=== PATIENT | male | born 1950 | race Caucasian/White ===

== ENCOUNTER 2018-07-08 10:00 | Observation (INO) | payer OTHER ==
[2018-07-08] VITALS (11 sets, daily range): BP systolic 119–189; BP diastolic 71–109
[~2018-07-08] VITALS: Ht 177.8 cm; Wt 97.1 kg
--- NOTE | 2018-07-08 10:00 | NUR ---
ARRIVAL TO ER 05 VIA [facility]. PT WITH C/O CP SINCE MIDNIGHT. SEE TRIAGE FOR HX. PT IS SITTING SEMI-FOWLERS ON CART, COLOR PINK, SKIN W/D. PT IS CALM AND COOPERATIVE. MONITORS PLACED.
[2018-07-08] MEDS ORDERED: NITROGLYCERIN 0.4 MG SL TABS BTL 25'S SL PRN ×2 (10:30→13:30)
--- NOTE | 2018-07-08 10:41 | Diagnostic Imaging Report ---
INDICATION: Chest pain and shortness of breath. Time of exam 10:05 a.m. COMPARISON: No prior studies are available for comparison. FINDINGS: The heart size is normal. The lungs appear to be clear. No infiltrates are seen. There is no effusion or pneumothorax. Pulmonary vascularity is normal. IMPRESSION: No acute cardiopulmonary process is detected. Dictated by: Dictated on workstation # [id number]
[2018-07-08 10:45] LABS: BASOPHILS % (AUTO) 1 % (0-10); EOSINOPHILS % (AUTO) 3 % (0-10); HEMATOCRIT 35 % (40-54); HEMOGLOBIN 10.7 G/DL (13.3-17.7); LYMPHOCYTES % (AUTO) 35 % (12-44); MEAN CORPUSCULAR HEMOGLOBIN 23 PG (25-34); MEAN CORPUSCULAR HGB CONC 30 G/DL (32-36); MEAN CORPUSCULAR VOLUME 74 FL (80-99); MEAN PLATELET VOLUME 9.5 FL (7.4-10.4); MONOCYTES % (AUTO) 13 % (0-12); PLATELET COUNT 341 10^3/uL (130-400); RED CELL DISTRIBUTION WIDTH 20.9 % (10.0-14.5); WHITE BLOOD COUNT 5.5 10^3/uL (4.3-11.0)
[2018-07-08 10:49] LABS: NEUTROPHILS % (AUTO) 48 % (42-75)
[2018-07-08] MEDS ORDERED: RT-ALBUTEROL/IPRATROPIUM 3 ML (DUONEB) VIAL ONE (10:49)
[2018-07-08 10:50] LABS: BASOPHILS # (AUTO) 0.1 10^3/uL (0.0-0.1); CHLORIDE 102 MMOL/L (98-107); EOSINOPHILS # (AUTO) 0.2 10^3/uL (0.0-0.3); LYMPHOCYTES # (AUTO) 1.9 X 10^3 (1.0-4.0); MONOCYTES # (AUTO) 0.7 X 10^3 (0.0-1.0); NEUTROPHILS # (AUTO) 2.6 X 10^3 (1.8-7.8); SODIUM 140 MMOL/L (135-145)
[2018-07-08 10:51] LABS: ALANINE AMINOTRANSFERASE 19 U/L (0-55); ALBUMIN 4.1 GM/DL (3.2-4.5); ALKALINE PHOSPHATASE 82 U/L (40-136); BILIRUBIN,TOTAL 0.7 MG/DL (0.1-1.0); BUN/CREATININE RATIO 13; CALCIUM 8.7 MG/DL (8.5-10.1); CARBON DIOXIDE 27 MMOL/L (21-32); CREATININE SERUM 0.96 MG/DL (0.60-1.30); GFR ESTIMATED > 60; GLUCOSE 117 MG/DL (70-105); MAGNESIUM 1.9 MG/DL (1.8-2.4); TOTAL PROTEIN 6.7 GM/DL (6.4-8.2)
--- NOTE | 2018-07-08 10:57 | ED Chest Pain ---
General Chief Complaint: Chest Pain Stated Complaint: CHEST PAIN Source: patient, EMS, old records Exam Limitations: no limitations History of Present Illness Date Seen by Provider: July 08, 2018 Time Seen by Provider: 10:39 Initial Comments The patient presents to ER by EMS from home with chief complaint that he's having some chest pain Center his chest radiating to his left arm. This started about midnight and is progressively gotten worse. At that time he took a dose of his nitroglycerin but he said the bottle very old and he did not get much benefit from it. EMS brought him and gave him 325 mg of aspirin to chew and swallow as well as another dose of nitroglycerin which she said gave him some modest relief from a 6 out of 10 down to a 5 out of 10. He says his pains worse with deep inspiration he's had an occasional cough and cold for the past month without fever or chills. He also has a history of COPD uses mometasone and has been using his albuterol couple times a day for the past 2-3 days with mild relief. He had quit smoking after he had stents placed within the last year and his heart however since living near his son he's picked up smoking again. 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 He takes aspirin and Plavix and states that he is not out of any of his medicines and takes them routinely. His last stent was August 2017 placed at the [facility]. Allergies and Home Medications Allergies Coded Allergies: NSAIDS (Non-Steroidal Anti-Inflamma (Verified Allergy, Severe, shortness of breath, rash, 07/08/18) codeine (Verified Allergy, Severe, swelling, shortness of breath, 07/08/18) Home Medications Aspirin 81 Mg Tablet.dr, 81 MG PO DAILY, (Reported) Atorvastatin Calcium 80 Mg Tablet, 80 MG PO HS, (Reported) Clopidogrel Bisulfate 75 Mg Tablet, 75 MG PO DAILY, (Reported) Cyclobenzaprine HCl 10 Mg Tablet, 10 MG PO TID PRN for SPASMS, (Reported) Metoprolol Tartrate 50 Mg Tablet, 50 MG PO BID, (Reported) Mometasone Furoate 220 Mcg Aer.pow.ba, 220 MCG IH DAILY, (Reported) Nitroglycerin 0.4 Mg Tab.subl, 0.4 MG SL UD PRN for CHEST PAIN, (Reported) Pantoprazole Sodium 40 Mg Tablet.dr, 40 MG PO BID, (Reported) Patient Home Medication List Home Medication List Reviewed: Yes Review of Systems Review of Systems Constitutional: No chills, No diaphoresis EENTM: No Blurred Vision, No Double Vision Respiratory: Denies Cough, Denies Shortness of Air Cardiovascular: See HPI, Chest Pain; Denies Edema, Denies Irregular Heart Rate Gastrointestinal: Denies Abdominal Pain, Denies Constipated, Denies Diarrhea, Denies Nausea, Denies Poor Fluid Intake, Denies Vomiting Genitourinary: Denies Burning, Denies Discharge Musculoskeletal: No back pain, No joint pain Skin: No pruritus, No rash Past Tjqxkpt-Tyrnkw-Dkpddu Hx Patient Social History Alcohol Use: Denies Use Recreational Drug Use: Yes Drug of Choice: MJ Smoking Status: Current Everyday Smoker Physical Exam Vital Signs Vital Signs - First Documented Capillary Refill : Less Than 3 Seconds Height, Weight, BMI Height: '" Weight: lbs. oz. kg; BMI Method: General Appearance: WD/WN, Anxious HEENT: PERRL/EOMI, Pharynx Normal, Moist Mucous Membranes Neck: Full Range of Motion, Normal Inspection, Supple Respiratory: Chest Non Tender, Lungs Clear, No Accessory Muscle Use, No Respiratory Distress, Decreased Breath Sounds Cardiovascular: Regular Rate, Rhythm, Normal Peripheral Pulses Gastrointestinal: Normal Bowel Sounds, Non Tender, Soft Extremity: Normal Capillary Refill, Pedal Edema (trace bilateral to the ankles) Neurologic/Psychiatric: Alert, Oriented x3, Normal Mood/Affect Skin: Normal Color, Warm/Dry Progress/Results/Core Measures Results/Orders Lab Results Laboratory Tests Test 07/08/18 10:10 Range/Units White Blood Count 5.5 4.3-11.0 10^3/uL Red Blood Count 4.75 4.35-5.85 10^6/uL Hemoglobin 10.7 L 13.3-17.7 G/DL Hematocrit 35 L 40-54 % Mean Corpuscular Volume 74 L 80-99 FL Mean Corpuscular Hemoglobin 23 L 25-34 PG Mean Corpuscular Hemoglobin Concent 30 L 32-36 G/DL Red Cell Distribution Width 20.9 H 10.0-14.5 % Platelet Count 341 130-400 10^3/uL Mean Platelet Volume 9.5 7.4-10.4 FL Neutrophils (%) (Auto) 48 42-75 % Lymphocytes (%) (Auto) 35 12-44 % Monocytes (%) (Auto) 13 H 0-12 % Eosinophils (%) (Auto) 3 0-10 % Basophils (%) (Auto) 1 0-10 % Neutrophils # (Auto) 2.6 1.8-7.8 X 10^3 Lymphocytes # (Auto) 1.9 1.0-4.0 X 10^3 Monocytes # (Auto) 0.7 0.0-1.0 X 10^3 Eosinophils # (Auto) 0.2 0.0-0.3 10^3/uL Basophils # (Auto) 0.1 0.0-0.1 10^3/uL Prothrombin Time 14.1 12.2-14.7 SEC INR Comment 1.1 0.8-1.4 Activated Partial Thromboplast Time 31 24-35 SEC D-Dimer 0.57 H 0.00-0.49 UG/ML Sodium Level 140 135-145 MMOL/L Potassium Level 4.0 3.6-5.0 MMOL/L Chloride Level 102 98-107 MMOL/L Carbon Dioxide Level 27 21-32 MMOL/L Anion Gap 11 5-14 MMOL/L Blood Urea Nitrogen 12 7-18 MG/DL Creatinine 0.96 0.60-1.30 MG/DL Estimat Glomerular Filtration Rate > 60 BUN/Creatinine Ratio 13 Glucose Level 117 H 70-105 MG/DL Calcium Level 8.7 8.5-10.1 MG/DL Corrected Calcium 8.6 8.5-10.1 MG/DL Magnesium Level 1.9 1.8-2.4 MG/DL Total Bilirubin 0.7 0.1-1.0 MG/DL Aspartate Amino Transf (AST/SGOT) 22 5-34 U/L Alanine Aminotransferase (ALT/SGPT) 19 0-55 U/L Alkaline Phosphatase 82 40-136 U/L Troponin T 11 <=15 NG/L Pro-B-Type Natriuretic Peptide 56.2 <75.0 PG/ML Total Protein 6.7 6.4-8.2 GM/DL Albumin 4.1 3.2-4.5 GM/DL My Orders Orders - THANG TUCKER Cbc With Automated Diff (07/08/18 10:18) Magnesium (07/08/18 10:18) Chest 1 View Ap/Pa Only (07/08/18 10:18) Ekg Tracing (07/08/18 10:18) Comprehensive Metabolic Panel (07/08/18 10:18) Protime With Inr (07/08/18 10:18) Partial Thromboplastin Time (07/08/18 10:18) O2 (07/08/18 10:18) Monitor-Rhythm Ecg Trace Only (07/08/18 10:18) Ed Iv/Invasive Line Start (07/08/18 10:18) Fibrin Degradation Products (07/08/18 10:18) Troponin T (07/08/18 10:18) Probnp Fs (07/08/18 10:18) Nitroglycerin 0.4 Mg Btl 25's (Nitrostat (07/08/18 10:30) Albuterol/Ipra Inhalation Soln (Duoneb I (07/08/18 10:49) Albuterol/Ipra Inhalation Soln (Duoneb I (07/08/18 11:00) Svn Small Volume Nebulizer (07/08/18 10:58) Morphine Injection (Morphine Injection (07/08/18 11:24) Medications Given in ED Current Medications Medications Dose Ordered Sig/Rox Route Start Time Stop Time Status Last Admin Dose Admin Albuterol/ Ipratropium 3 ml STK-MED ONCE .ROUTE 07/08/18 10:49 07/08/18 10:54 DC 07/08/18 10:58 3 ML Nitroglycerin 0.4 mg NEEDED PRN SL 07/08/18 10:30 07/08/18 10:27 0.4 MG Vital Signs/I&O 07/08/18 07/08/18 10:00 10:00 Temp 98.5 Pulse 63 Resp 22 B/P (MAP) 161/75 (103) Pulse Ox 99 O2 Delivery Room Air Room Air Progress Progress Note #1: Time: 10:54 Progress Note Minor relief from nitroglycerin. His blood pressure however went down from 175 systolic to 105 with a single dose. We'll try a DuoNeb And see if that gives him relief the symptoms. Could be pleuritic versus COPD versus other. Initial chest x-ray doesn't show any infiltrates. Pulmonary embolism seems unlikely as the patient has a heart rate in the low 60s and oxygen saturation is 100% on room air. He has had cold-like symptoms for the last month. ED ACS 19 points. Not low risk. This patient is not a candidate for early discharge and should receive a standard chest pain evaluation with delayed troponin testing. Wells criteria is 0.0 points. Low risk group: 1.3% chance of PE in an ED population. Another study assigned scores below 4 as PE Unlikely and had a 3% incidence of PE. Progress Note #2: Time: 11:49 Progress Note Patient states that he is feeling a little easier breathing after the breathing treatment however still rates the pain as a 5 out of 10. His blood pressure has improved so we'll give him some morphine and make movement transfer towards [facility]. D-dimer is not elevated age based. Initial ECG Impression Date: July 08, 2018 Initial ECG Impression Time: 10:06 Initial ECG Rate: 63 Initial ECG Rhythm: Normal Sinus Initial ECG Intervals: Normal Initial ECG Impression: Normal Initial ECG Comparisson: Unchanged Comment No ST elevation or depression. Diagnostic Imaging Diagonstic Imaging: Xray Plain Films/CT/US/NM/MRI: chest Comments NAME: MAXIMO CRUZ [facility] REC#: [id number] PT STATUS: REG ER : 1950 PHYSICIAN: THANG TUCKER MD ADMIT DATE: 07/08/18/ER FS Draft Date of Exam:07/08/18 CHEST 1 VIEW AP/PA ONLY INDICATION: Chest pain and shortness of breath. Time of exam 10:05 a.m. COMPARISON: No prior studies are available for comparison. FINDINGS: The heart size is normal. The lungs appear to be clear. No infiltrates are seen. There is no effusion or pneumothorax. Pulmonary vascularity is normal. IMPRESSION: No acute cardiopulmonary process is detected. Dictated on workstation # [id number] Dict: 07/08/18 1038 Trans: 07/08/18 1041 [id number] Interpreted by: JANETT GRAHAM MD Electronically signed by: Reviewed: Reviewed by Me Departure Communication (Admissions) Time/Spoke to Admitting Phy: 11:05 Dr. Spencer agrees to observe the patient on the medical telemetry floor. Cardiology consult. Time/Spoke to Consulting Phy: 11:00 Dr. Cuello agrees the patient should be observed since he's having ongoing chest pain with history of stent. Impression Primary Impression: Chest pain Qualified Codes: R07.9 - Chest pain, unspecified Disposition: ADMITTED INPATIENT Condition: Stable Admissions Decision to Admit Reason: Admit from ER (General) Decision to Admit/Date: July 08, 2018 Time/Decision to Admit Time: 11:00 THANG TUCKER July 08, 2018 10:57
[2018-07-08] MEDS ORDERED: RT-ALBUTEROL/IPRATROPIUM 3 ML (DUONEB) VIAL INH ONE (11:00)
--- NOTE | 2018-07-08 11:00 | NUR ---
PLANNED ADMISSION AND DR TUCKER CALLING DR RAMACHANDRAN AT [facility].
[2018-07-08] MEDS ORDERED: PANT40TA3 PO (11:07)
[2018-07-08] MEDS ORDERED: ATOR80TA76 PO (11:07)
[2018-07-08] MEDS ORDERED: CYCL10TA9 PO ×2 (11:07→14:21)
[2018-07-08] MEDS ORDERED: METO50TA15 PO (11:07)
[2018-07-08] MEDS ORDERED: NITR0.4T39 SL (11:07)
[2018-07-08] MEDS ORDERED: CLOP75TA28 PO (11:07)
[2018-07-08] MEDS ORDERED: MOME220A2 IH (11:07)
[2018-07-08] MEDS ORDERED: ASPI-983 PO (11:07)
--- NOTE | 2018-07-08 11:15 | NUR ---
AWAITING BED NUMBER FROM [facility].
[2018-07-08] MEDS ORDERED: morphine INJ 10 MG/ML 1ML (SYR OR VIAL) IVP STA (11:24)
[2018-07-08 11:31] LABS: INR 1.1 (0.8-1.4); PROTHROMBIN TIME PATIENT 14.1 SEC (12.2-14.7)
--- NOTE | 2018-07-08 11:36 | NUR ---
MORPHINE 4 MG SIVP GIVEN FOR CONTINUED C/O CP RATED "5"/10. PT REPORTS MORPHINE GOING TO HIS HEAD WITH A LIGHTHEADED FEELING. PT WAS TRYING TO USE URINAL AND NOW REQUIRING RN TO STAND PT TO BE ABLE TO VOID. RN REMAINS IN ROOM NEAR PT.
--- NOTE | 2018-07-08 11:50 | NUR ---
CALL TO [facility] RN: ALAYNA FOR REPORT AND RN NOT AVAILABLE. WILL AWAIT RETURN CALL.
--- NOTE | 2018-07-08 11:55 | NUR ---
FAXED REQUEST FOR TRANSFER
--- NOTE | 2018-07-08 12:00 | NUR ---
CALL TO [facility] TO DISPATCH EMS
--- NOTE | 2018-07-08 12:10 | NUR ---
EMS IS HERE, RN IS ON PHONE DOING REPORT AT THIS TIME.
--- NOTE | 2018-07-08 12:20 | NUR ---
PT DEPARTING ER AT THIS TIME REPORTING PAIN IS IMPROVING AFTER MORPHINE 4 MG IVP. PT HAS BEEN EATING ICE CHIPS WITHOUT DIFFICULTY. VSS. PT IS STABLE.
[2018-07-08] MEDS ORDERED: ONDANSETRON 4 MG/2 ML (SDV) Z0FRAN IV PRN (13:30)
[2018-07-08] MEDS ORDERED: ANTACID SUSP 30 ML UDC (MYLANTA) PO PRN (13:30)
[2018-07-08] MEDS ORDERED: ACETAMINOPHEN 500 MG TAB (TYLENOL) PO PRN (13:30)
--- NOTE | 2018-07-08 14:13 | NUR ---
MAXIMO CRUZ admitted to room 403-1, with an admitting diagnosis of chest pain, on 07/08/18 from ER via [facility], accompanied by EMS.MAXIMO CRUZ introduced to surroundings, call light, bed controls, phone, TV, temperature control, lights, meal times, smoking policy, visitor policy, side rail policy, bathrooms and showers. Patient Rights given to patient in the handbook. MAXIMO CRUZ verbalizes understanding that [facility] is not responsible for the loss or damage to any personal effects or valuables that are kept in the patients posession during their hospitalization. MAXIMO CRUZ verbalizes understanding of Interdisciplinary Patient Education. Patient and/or family were informed about the Rapid Response Team and its purpose.
[2018-07-08] MEDS ORDERED: RT-ALBUINH IH (14:21)
--- NOTE | 2018-07-08 14:21 | History & Physical-Hospitalist ---
History of Present Illness HPI/Chief Complaint Chief complaint: Chest pain HPI: This is a clinic Pt of the [facility] who has a past medical history of smoking who quit after prior stents were placed in the coronary vessels a few years ago and then restarted due to the stress level of many people living in his house with multiple dogs who presented to the [place] ER with chest pressure and considering his risk factors for unstable angina and cardiovascular compromise he was admitted and transferred to [facility] and Dr. Cuello is consulted. Pt will likely need to undergo some sort of cardiac catheterization procedure or stress test in order to risk stratify. At this current time Pt denies any pain. We did talk about smoking cessation. 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 He does not wear oxygen and does not wear a CPAP machine at home. Source: patient Exam Limitations: no limitations Date Seen 07/08/18 Time Seen by a Provider: 14:10 Attending Physician Dipika Spencer DO PCP No,Local Physician Referring Physician Date of Admission July 08, 2018 at 11:39 Home Medications & Allergies Home Medications Reviewed patient Home Medication Reconciliation performed by pharmacy medication reconciliations echocardiograph technician and/or nursing. Patients Allergies have been reviewed. Allergies Allergies Coded Allergies NSAIDS (Non-Steroidal Anti-Inflamma (Verified Allergy, Severe, shortness of breath, rash, 07/08/18) codeine (Verified Allergy, Severe, swelling, shortness of breath, 07/08/18) Past Qfvprcy-Anmlfs-Tiarhc Hx Past Med/Social Hx: Reviewed Nursing Past Med/Soc Hx, Reviewed and Corrections made Patient Social History Marrital Status: single Employed/Student: retired Alcohol Use: Denies Use Recreational Drug Use: Yes Drug of Choice: MJ Smoking Status: Current Everyday Smoker Type Used: Cigarettes 2nd Hand Smoke Exposure: Yes Recent Foreign Travel: No Contact w/other who traveled: No Recent Hopitalizations: No (hospitalized Feb 2018 @ [facility]) Recent Infectious Disease Expo: No Immunizations Up To Date Tetanus Booster (TDap): Unknown Date of Pneumonia Vaccine: Nov 10, 2017 Date of Influenza Vaccine: Nov 10, 2017 Seasonal Allergies Seasonal Allergies: No Past Medical History Surgeries: Coronary Stent Cardiac: Coronary Artery Disease, High Cholesterol, Hypertension Gastrointestinal: Gastroesophageal Reflux History of Blood Disorders: No Review of Systems Constitutional: see HPI EENTM: no symptoms reported Respiratory: no symptoms reported Cardiovascular: chest pain Gastrointestinal: no symptoms reported Genitourinary: no symptoms reported Musculoskeletal: no symptoms reported Skin: no symptoms reported Psychiatric/Neurological: No Symptoms Reported All Other Systems Reviewed Negative Unless Noted: Yes Physical Exam Physical Exam Vital Signs Vital Signs - First Documented 07/08/18 14:48 FiO2 21 Capillary Refill : Less Than 3 Seconds Height, Weight, BMI Height: 5'10.00" Weight: 214lbs. 0.0oz. [id number]; BMI Method:Stated General Appearance: No Apparent Distress, WD/WN, Chronically ill Eyes: Right Eye Normal Inspection, Right Eye PERRL HEENT: PERRL/EOMI, Normal ENT Inspection, Pharynx Normal, Moist Mucous Membranes Neck: Full Range of Motion, Normal Inspection, Non Tender Respiratory: Chest Non Tender, Lungs Clear, No Accessory Muscle Use, No Respiratory Distress, Decreased Breath Sounds Cardiovascular: Regular Rate, Rhythm, No Edema, No Gallop, No JVD, No Murmur, Normal Peripheral Pulses Gastrointestinal: Normal Bowel Sounds, No Organomegaly, No Pulsatile Mass, Non Tender, Soft Back: Normal Inspection, No CVA Tenderness, No Vertebral Tenderness Extremity: Normal Capillary Refill, Normal Inspection, Normal Range of Motion, Non Tender, No Calf Tenderness, No Pedal Edema Neurologic/Psychiatric: Alert, Oriented x3, No Motor/Sensory Deficits, Normal Mood/Affect Skin: Normal Color, Warm/Dry Lymphatic: No Adenopathy Results Results/Procedures Labs Laboratory Tests 07/08/18 10:10 Patient resulted labs reviewed. Assessment/Plan Admission Diagnosis Assessment: Chest pain r/o ACS CAD Coronary stents in past Smoker Obesity Plan: Dr Cuello consultation is appreciated Monitor chest pain EST Monitor labs Smoking cessation Admission Status: Observation Diagnosis/Problems Diagnosis/Problems (1) Chest pain Status: Acute Qualifiers: Chest pain type: unspecified Qualified Codes: R07.9 - Chest pain, unspecified (2) CAD (coronary artery disease) Status: Chronic Qualifiers: Coronary Disease-Associated Artery/Lesion type: [place] artery [place] vs. transplanted heart: [place] heart Associated angina: without angina Qualified Codes: I25.10 - Atherosclerotic heart disease of [place] coronary artery without angina pectoris (3) Presence of stent in coronary artery Status: Chronic (4) Smoker Status: Chronic (5) Obesity (BMI 30.0-34.9) Status: Chronic SPENCER,DIPIKA DO July 08, 2018 14:21
[2018-07-08] MEDS ORDERED: MULT1TAB69 PO (14:22)
[2018-07-08] MEDS ORDERED: ASCO-262 PO (14:22)
[2018-07-08] MEDS ORDERED: ACET-2267 PO (14:22)
--- NOTE | 2018-07-08 14:23 | NUR ---
[facility] [place], HE IS SEEN AT THE CLINIC IN [place]. HE HAS A DETAILED LIST OF HIS MEDICATIONS HE IS TAKING AND I UPDATED THE MED REC WITH THAT LIST.
[2018-07-08] MEDS ORDERED: RT-ALBUTEROL/IPRATROPIUM 3 ML (DUONEB) VIAL INH PRN (15:00)
--- NOTE | 2018-07-08 15:46 | Consultation-Cardiology ---
HPI-Cardiology Cardiology Consultation Date of Consultation 07/08/18 Date of Admission Time Seen by Provider: 15:43 Indication: chest pain HPI 68 years old gentleman with history of coronary artery disease multiple interventions in the past, reporting having 3 stents in the past. Start to have chest pain around midnight. Came into the emergency room, responded to morphine and nitroglycerin, currently chest pain-free, was having some shortness of breath and pedal edema which has been worsening recently. No syncope or near syncopal episodes. No claudications Home Medications & Allergies Allergies: Coded Allergies: NSAIDS (Non-Steroidal Anti-Inflamma (Verified Allergy, Severe, shortness of breath, rash, 07/08/18) codeine (Verified Allergy, Severe, swelling, shortness of breath, 07/08/18) Home Medication List Reviewed: Yes VHZ-Jvefcg-Xxydcn Hx Patient Social History Marital Status: Employed/Student: employed, retired Alcohol Use: Denies Use Recreational Drug Use: Yes Drug of Choice: MJ Smoking Status: Current Everyday Smoker Type Used: Cigarettes 2nd Hand Smoke Exposure: Yes Recent Foreign Travel: No Recent Infectious Disease Expo: No Recent Hopitalizations: No (hospitalized Feb 2018 @ [facility]) Immunizations Up To Date Tetanus Booster (TDap): Unknown Date of Pneumonia Vaccine: Nov 10, 2017 Date of Influenza Vaccine: Nov 10, 2017 Past Medical History discussed below Family Medical History Family Medical Hx noncontributory to his current condition Review of Systems-General Review of Systems Constitutional: see HPI; No chills, No diaphoresis EENTM: see HPI, no symptoms reported Respiratory: see HPI, cough, dyspnea on exertion; No hemoptysis; orthopnea; No phlegm; short of breath; No stridor, No wheezing, No other Cardiovascular: see HPI, chest pain, edema; No Hx of Intervention, No palpitations, No syncope, No vascular heart diseas, No other Gastrointestinal: no symptoms reported, see HPI Genitourinary: no symptoms reported, see HPI Musculoskeletal: no symptoms reported; No back pain, No joint pain Skin: no symptoms reported; No pruritus, No rash Psychiatric/Neurological: No Symptoms Reported, See HPI Reviewed Test Results Reviewed Test Results Lab Laboratory Tests Test 07/08/18 10:10 07/08/18 14:54 Range/Units White Blood Count 5.5 4.3-11.0 10^3/uL Red Blood Count 4.75 4.35-5.85 10^6/uL Hemoglobin 10.7 L 13.3-17.7 G/DL Hematocrit 35 L 40-54 % Mean Corpuscular Volume 74 L 80-99 FL Mean Corpuscular Hemoglobin 23 L 25-34 PG Mean Corpuscular Hemoglobin Concent 30 L 32-36 G/DL Red Cell Distribution Width 20.9 H 10.0-14.5 % Platelet Count 341 130-400 10^3/uL Mean Platelet Volume 9.5 7.4-10.4 FL Neutrophils (%) (Auto) 48 42-75 % Lymphocytes (%) (Auto) 35 12-44 % Monocytes (%) (Auto) 13 H 0-12 % Eosinophils (%) (Auto) 3 0-10 % Basophils (%) (Auto) 1 0-10 % Neutrophils # (Auto) 2.6 1.8-7.8 X 10^3 Lymphocytes # (Auto) 1.9 1.0-4.0 X 10^3 Monocytes # (Auto) 0.7 0.0-1.0 X 10^3 Eosinophils # (Auto) 0.2 0.0-0.3 10^3/uL Basophils # (Auto) 0.1 0.0-0.1 10^3/uL Prothrombin Time 14.1 12.2-14.7 SEC INR Comment 1.1 0.8-1.4 Activated Partial Thromboplast Time 31 24-35 SEC D-Dimer 0.57 H 0.00-0.49 UG/ML Sodium Level 140 135-145 MMOL/L Potassium Level 4.0 3.6-5.0 MMOL/L Chloride Level 102 98-107 MMOL/L Carbon Dioxide Level 27 21-32 MMOL/L Anion Gap 11 5-14 MMOL/L Blood Urea Nitrogen 12 7-18 MG/DL Creatinine 0.96 0.60-1.30 MG/DL Estimat Glomerular Filtration Rate > 60 BUN/Creatinine Ratio 13 Glucose Level 117 H 70-105 MG/DL Calcium Level 8.7 8.5-10.1 MG/DL Corrected Calcium 8.6 8.5-10.1 MG/DL Magnesium Level 1.9 1.8-2.4 MG/DL Total Bilirubin 0.7 0.1-1.0 MG/DL Aspartate Amino Transf (AST/SGOT) 22 5-34 U/L Alanine Aminotransferase (ALT/SGPT) 19 0-55 U/L Alkaline Phosphatase 82 40-136 U/L Troponin T 11 <=15 NG/L Pro-B-Type Natriuretic Peptide 56.2 <75.0 PG/ML Total Protein 6.7 6.4-8.2 GM/DL Albumin 4.1 3.2-4.5 GM/DL Glucometer 121 H 70-110 MG/DL Physical Exam Physical Exam Vital Signs Vital Signs - First Documented 07/08/18 14:48 FiO2 21 Capillary Refill : Less Than 3 Seconds Height, Weight, BMI Height: 5'10.00" Weight: 214lbs. 0.0oz. [id number]; 30.7 BMI Method:Stated General Appearance: WD/WN, Anxious Eyes: Bilateral Eye Normal Inspection, Bilateral Eye PERRL, Bilateral Eye EOMI HEENT: PERRL/EOMI, Pharynx Normal, Moist Mucous Membranes Neck: Full Range of Motion, Normal Inspection, Supple Respiratory: Chest Non Tender, Lungs Clear, No Accessory Muscle Use, No Respiratory Distress, Decreased Breath Sounds Cardiovascular: Regular Rate, Rhythm, Normal Peripheral Pulses, Systolic Murmur, Gallop/S3 Gastrointestinal: Normal Bowel Sounds, Non Tender, Soft Back: Normal Inspection, No CVA Tenderness, No Vertebral Tenderness Extremity: Normal Capillary Refill, Pedal Edema (trace bilateral to the ankles) Neurologic/Psychiatric: Alert, Oriented x3, Normal Mood/Affect Skin: Normal Color, Warm/Dry Lymphatic: No Adenopathy A/P-Cardiology Admission Diagnosis Unstable angina Coronary artery disease next and congestive heart failure Hypertension Hyperlipidemia Assessment/Plan Chest pain resembling angina, unstable angina. Cardiac enzymes were negative, currently chest pain-free, planning to proceed with stress test possible cardiac catheterization if needed. Continue to monitor cardiac enzymes, continue aspirin, restart home medication Peripheral edema, congestive heart failure, acute on chronic left ventricular systolic dysfunction, evaluate echocardiogram Hypertension, restart home medication monitor blood pressure next Hyperlipidemia, restart home medication monitor lipids Tobaccoism, still an active smoker, educated on smoking cessation Obesity, BMI 30, discussed weight loss BRANDYN WARREN MD July 08, 2018 15:46
[2018-07-08] MEDS ORDERED: REGADENOSON 0.4 MG/5 ML SYR (LEXISCAN) IV ONE (16:00)
[2018-07-08] MEDS: RT-ALBUTEROL/IPRATROPIUM 3 ML (DUONEB) VIAL INH SCH (18:51)
[2018-07-08] MEDS ORDERED: NICOTINE 21 MG (NICODERM) PATCH TD PRN (20:00)
[2018-07-08] MEDS ORDERED: RT-ALBUTEROL SULF 2.5 MG/3 ML PRE-MIX VIAL IH PRN (20:00)
[2018-07-08] MEDS ORDERED: ALPRAZolam 0.25 MG (XANAX) TAB PO PRN (20:00)
[2018-07-08] MEDS ORDERED: CYCLOBENZAPRINE 10 MG (FLEXERIL) TAB PO PRN (20:00)
[2018-07-08] MEDS ORDERED: HYDROcodone/APAP 5 MG/325 MG (LORTAB) TAB PO PRN (20:00)
[2018-07-08] MEDS ORDERED: diphenhydrAMINE 25 MG TAB (BENADRYL) PO PRN (20:00)
[2018-07-08] MEDS ORDERED: DOCUSATE SODIUM 100 MG (COLACE) CAP PO PRN (20:00)
[2018-07-08] MEDS ORDERED: MELATONIN 3 MG TABLET PO PRN (20:00)
[2018-07-08] MEDS: PANTOPRAZOLE 40 MG (PROTONIX) TAB PO SCH (20:21)
[2018-07-08] MEDS: CYCLOBENZAPRINE 10 MG (FLEXERIL) TAB PO SCH (20:21)
[2018-07-08] MEDS: SENNA W/DOCUSATE (SENOKOT S) TABLET PO SCH (20:21)
[2018-07-08] MEDS: meTOprolol TARTRATE 50 MG (LOPRESSOR) TAB PO SCH (20:22)
[2018-07-08] MEDS: ATORVASTATIN 80 MG (LIPITOR) TABLET PO SCH (20:22)
[2018-07-08] MEDS ORDERED: MOMETASONE FUROATE IH SCH (21:00)
[2018-07-09] VITALS (8 sets, daily range): BP systolic 129–163; BP diastolic 70–87
[2018-07-09 05:46] LABS: BASOPHILS # (AUTO) 0.1 10^3/uL (0.0-0.1); BASOPHILS % (AUTO) 1 % (0-10); EOSINOPHILS # (AUTO) 0.3 10^3/uL (0.0-0.3); EOSINOPHILS % (AUTO) 4 % (0-10); HEMATOCRIT 34 % (40-54); HEMOGLOBIN 10.8 G/DL (13.3-17.7); LYMPHOCYTES # (AUTO) 1.9 X 10^3 (1.0-4.0); LYMPHOCYTES % (AUTO) 29 % (12-44); MEAN CORPUSCULAR HEMOGLOBIN 23 PG (25-34); MEAN CORPUSCULAR HGB CONC 32 G/DL (32-36); MEAN CORPUSCULAR VOLUME 72 FL (80-99); MEAN PLATELET VOLUME 10.2 FL (7.4-10.4); MONOCYTES # (AUTO) 0.8 X 10^3 (0.0-1.0); MONOCYTES % (AUTO) 13 % (0-12); NEUTROPHILS # (AUTO) 3.5 X 10^3 (1.8-7.8); NEUTROPHILS % (AUTO) 53 % (42-75); PLATELET COUNT 347 10^3/uL (130-400); RED CELL DISTRIBUTION WIDTH 21.1 % (10.0-14.5); WHITE BLOOD COUNT 6.5 10^3/uL (4.3-11.0)
[2018-07-09 06:00] LABS: ANISOCYTOSIS SLIGHT; BAND NEUTROPHILS 0 %; BASOPHILS % (MANUAL) 0 %; ELLIPT/OVALOCYTES SLIGHT; EOSINOPHILS % (MANUAL) 6 %; HYPOCHROMASIA MODERATE; LYMPHOCYTES % (MANUAL) 21 %; MONOCYTES % (MANUAL) 8 %; NEUTROPHILS % (MANUAL) 63 %; REACTIVE LYMPHOCYTES 2 %; TARGET CELLS SLIGHT
[2018-07-09 06:07] LABS: ALANINE AMINOTRANSFERASE 18 U/L (0-55); ALBUMIN 3.8 GM/DL (3.2-4.5); ALKALINE PHOSPHATASE 87 U/L (40-136); BILIRUBIN,TOTAL 0.4 MG/DL (0.1-1.0); BUN/CREATININE RATIO 16; CALCIUM 8.8 MG/DL (8.5-10.1); CARBON DIOXIDE 23 MMOL/L (21-32); CHLORIDE 108 MMOL/L (98-107); CHOLESTEROL 96 MG/DL (< 200); CREATININE SERUM 0.86 MG/DL (0.60-1.30); GFR ESTIMATED > 60; GLUCOSE 106 MG/DL (70-105); HDL CHOLESTEROL 37 MG/DL (40-60); POTASSIUM 3.9 MMOL/L (3.6-5.0); SODIUM 139 MMOL/L (135-145); TOTAL PROTEIN 6.4 GM/DL (6.4-8.2); TRIGLYCERIDES 45 MG/DL (<150); VLDL CHOLESTEROL 9 MG/DL (5-40)
[2018-07-09] MEDS ORDERED: CATHETER FLUSH 10 ML SYR IV PRN (07:15)
[2018-07-09] MEDS ORDERED: REGADENOSON 0.4 MG/5 ML SYR (LEXISCAN) IV ONE (07:41)
--- NOTE | 2018-07-09 08:16 | Cardiology Progress Note ---
Subjective Date Seen by Provider: July 09, 2018 Time Seen by Provider: 08:15 Subjective/Events-last exam patient is laying down in bed, feeling better, still having some dyspnea. Had a stress test earlier Review of Systems General: No Chills, No Night Sweats, No Fatigue, No Malaise, No Appetite, No Other HEENT: No Head Aches, No Visual Changes, No Eye Pain, No Ear Pain, No Dysphasia, No Sinus Congestion, No Post Nasal Drip, No Sore Throat, No Other Pulmonary: Dyspnea; No Cough, No Pleuritic Chest Pain, No Other Cardiovascular: Chest Pain; No: Palpitations, Orthopnea, Paroxysmal Noc. Dyspnea, Edema, Lt Headedness, Other Objective-Cardiology Exam Last Set of Vital Signs Vital Signs 07/08/18 07/09/18 07/09/18 07/09/18 14:48 03:45 07:52 07:53 Temp 97.6 Pulse 98 Resp 18 B/P (MAP) 163/87 (112) Pulse Ox 95 O2 Delivery Room Air FiO2 21 Capillary Refill : Less Than 3 Seconds I&O Intake and Output 07/09/18 00:00 Intake Total 680 ml Balance 680 ml Intake Oral 680 ml # Voids 3 Daily Weight Change No General: Alert, Oriented X3, Cooperative HEENT: Atraumatic, PERRLA Neck: Supple, No JVD, No Thyromegaly Lungs: Clear to Auscultation, Normal Air Movement Heart: Regular Rate, Normal S1, Normal S2, No Murmurs Abdomen: Normal Bowel Sounds, Soft, No Tenderness, No Hepatosplenomegaly, No Masses Extremities: No Clubbing, No Cyanosis, No Edema, Normal Pulses, No Tenderness/Swelling Skin: No Rashes, No Breakdown, No Significant Lesion Neuro: Normal Gait, Normal Speech, Strength at 5/5 X4 Ext, Normal Tone, Sensation Intact Psych/Mental Status: Mental Status NL, Mood NL Results Lab Laboratory Tests 07/08/18 10:10 07/09/18 05:11 A/P-Cardiology Admission Diagnosis Unstable angina Coronary artery disease next and congestive heart failure Hypertension Hyperlipidemia Assessment/Plan Chest pain resembling angina, unstable angina. Cardiac enzymes were negative, currently chest pain-free, stress test was done this morning, nuclear images are being processed. We'll continue to follow with you Peripheral edema, congestive heart failure, acute on chronic left ventricular systolic dysfunction, normal left ventricular systolic function per echocardiogram. Hypertension, monitor blood pressure Hyperlipidemia, restart home medication monitor lipids Tobaccoism, still an active smoker, educated on smoking cessation Obesity, BMI 30, discussed weight loss Clinical Quality Measures DVT/VTE Risk/Contraindication: Risk Factor Score Per Nursin RFS Level Per Nursing on Admit: 4+=Very High BRANDYN WARREN MD July 09, 2018 08:16
[2018-07-09] MEDS: SENNA W/DOCUSATE (SENOKOT S) TABLET PO SCH ×2 (09:40→21:26)
[2018-07-09] MEDS: ASPIRIN E.C. 81 MG (ECOTRIN) TAB PO SCH (09:41)
[2018-07-09] MEDS: CLOPIDOGREL 75 MG (PLAVIX) TABLET PO SCH (09:41)
[2018-07-09] MEDS: meTOprolol TARTRATE 50 MG (LOPRESSOR) TAB PO SCH ×2 (09:42→21:25)
[2018-07-09] MEDS: PANTOPRAZOLE 40 MG (PROTONIX) TAB PO SCH ×2 (09:42→21:25)
[2018-07-09] MEDS: NICOTINE PATCH REMOVAL TP SCH (09:42)
[2018-07-09] MEDS: lisINopril 5 MG (PRINIVIL) TABLET PO SCH (09:42)
[2018-07-09] MEDS ORDERED: methylPREDNISolone 40 MG/ML (Solu-MEDROL) VIAL IV ONE (09:45)
--- NOTE | 2018-07-09 09:46 | Progress Note-Hospitalist ---
Subjective HPI/CC On Admission Date Seen by Provider: July 09, 2018 Time Seen by Provider: 09:15 Chief complaint: Chest pain HPI: This is a clinic Pt of the [facility] clinic who has a past medical history of smoking who quit after prior stents were placed in the coronary vessels a few years ago and then restarted due to the stress level of many people living in his house with multiple dogs who presented to the [place] [facility] with chest pressure and considering his risk factors for unstable angina and cardiovascular compromise he was admitted and transferred to [facility] and Dr. Cuello is consulted. Pt will likely need to undergo some sort of cardiac catheterization procedure or stress test in order to risk stratify. At this current time Pt denies any pain. We did talk about smoking cessation. 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 He does not wear oxygen and does not wear a CPAP machine at home. Subjective/Events-last exam Pt had a good night No chest pain Cough is a result from smoking cessation recently Will give one dose of the Solu-Medrol to decrease the inflammation and help with the exacerbation of COPD he currently is in Chest x-ray yesterday was negative Will need oral steroids at [place] Awaiting results from cardiac stress test by Dr. Cuello May need cardiac catheterization in order to risk stratify since he does have a hx of coronary stents Smoking cessation as counseled Nebulizers were ordered for wheezing Review of Systems General: Fatigue Pulmonary: Dyspnea, Cough Objective Exam Vital Signs Vital Signs Date Time Temp Pulse Resp B/P (MAP) Pulse Ox O2 Delivery O2 Flow Rate FiO2 07/09/18 19:37 95 Room Air 07/09/18 19:31 98.1 93 22 143/78 (99) 07/08/18 14:48 21 Capillary Refill : Less Than 3 Seconds General Appearance: No Apparent Distress, WD/WN, Chronically ill, Other (coughing) HEENT: PERRL/EOMI, Normal ENT Inspection, Pharynx Normal, Moist Mucous Membranes Neck: Full Range of Motion, Normal Inspection, Non Tender Respiratory: Chest Non Tender, No Accessory Muscle Use, No Respiratory Distress, Crackles, Rales, Wheezing Cardiovascular: Regular Rate, Rhythm, No Edema, No Gallop, No JVD, No Murmur, Normal Peripheral Pulses Gastrointestinal: Normal Bowel Sounds, No Organomegaly, No Pulsatile Mass, Non Tender, Soft Back: Normal Inspection, No CVA Tenderness, No Vertebral Tenderness Extremity: Normal Capillary Refill, Normal Inspection, Normal Range of Motion, Non Tender, No Calf Tenderness, No Pedal Edema Neurologic/Psychiatric: Alert, Oriented x3, No Motor/Sensory Deficits, Normal Mood/Affect Skin: Normal Color, Warm/Dry Lymphatic: No Adenopathy Results/Procedures Lab Laboratory Tests 07/09/18 05:11 Patient resulted labs reviewed. Assessment/Plan Assessment and Plan Assess & Plan/Chief Complaint Assessment: Chest pain r/o ACS with no reversible ischemia on stress test AECOPD CAD Coronary stents in past Smoker Obesity Plan: Dr Cuello consultation is appreciated Monitor chest pain EST Monitor labs Smoking cessation IV steroids Nebs Diagnosis/Problems Diagnosis/Problems (1) COPD exacerbation Status: Acute (2) Chest pain Status: Resolved Qualifiers: Chest pain type: unspecified Qualified Codes: R07.9 - Chest pain, unspecified Resolution Date/Time: 07/09/18 @ 20:12 (3) CAD (coronary artery disease) Status: Chronic Qualifiers: Coronary Disease-Associated Artery/Lesion type: [place] artery [place] vs. transplanted heart: [place] heart Associated angina: without angina Qualified Codes: I25.10 - Atherosclerotic heart disease of [place] coronary artery without angina pectoris (4) Presence of stent in coronary artery Status: Chronic (5) Smoker Status: Chronic (6) Obesity (BMI 30.0-34.9) Status: Chronic Clinical Quality Measures DVT/VTE Risk/Contraindication: Risk Factor Score Per Nursin RFS Level Per Nursing on Admit: 4+=Very High MARIO RAMACHANDRAN DO July 09, 2018 09:46
--- NOTE | 2018-07-09 16:11 | STRESS TEST ---
DATE OF SERVICE: 07/09/2018 LEXISCAN MYOVIEW STRESS TEST REPORT Baseline heart rate is 66. Baseline blood pressure 149/85. Baseline EKG sinus rhythm with no ischemic changes. In summary, the patient received 10.34 mCi of technetium-99 Myoview and the resting images were obtained. Then, the patient received 0.4 mg of Lexiscan followed by 32.0 mCi of technetium-99 Myoview. Throughout the test, there were no EKG changes. The resting and stress images were reviewed and compared in the short axis, horizontal long axis, and vertical long axis views. Review of the images showed diaphragmatic attenuation with reversible ischemia involving the mid to apical inferior wall and inferoseptum. SSS is 9, SDS 5, TID value 1.01. On the gated images, the patient had normal left ventricular size with normal contractility. Calculated ejection fraction 57%. He had some chest pain with adenosine injection. IN CONCLUSION: 1. The patient tolerated Lexiscan well, had some chest pain with adenosine injection. 2. Diaphragmatic attenuation with mild ischemia involving the mid to apical inferior wall and inferoseptum. 3. Normal left ventricular size with normal contractility. Calculated ejection fraction 57%. Job ID: [id number] DocumentID: [id number] Dictated Date: 07/09/2018 15:25:26 Petroleum Engineering Professor Date: 07/09/2018 16:11:13 Dictated By: BRANDYN WARREN MD
[2018-07-09] MEDS: NS IV 1000 ML 1,000 ML IV SCH (19:02)
[2018-07-09] MEDS: RT-ALBUTEROL/IPRATROPIUM 3 ML (DUONEB) VIAL INH SCH (19:35)
[2018-07-09] MEDS: methylPREDNISolone 40 MG/ML (Solu-MEDROL) VIAL IV SCH ×2 (20:45→20:47)
[2018-07-09] MEDS: ATORVASTATIN 80 MG (LIPITOR) TABLET PO SCH (21:25)
[2018-07-09] MEDS: CYCLOBENZAPRINE 10 MG (FLEXERIL) TAB PO SCH (21:25)
[2018-07-10] VITALS (7 sets, daily range): BP systolic 103–146; BP diastolic 64–79
[2018-07-10] MEDS: NS IV 1000 ML 1,000 ML IV SCH (05:27)
[2018-07-10] MEDS ORDERED: LIDOCAINE 1% INJ 20 ML 20 ML VIAL ONE (07:20)
[2018-07-10] MEDS ORDERED: HEParin (CATH LAB) 2,000 ML IV ONE (07:20)
[2018-07-10] MEDS: RT-ALBUTEROL/IPRATROPIUM 3 ML (DUONEB) VIAL INH SCH (07:30)
--- NOTE | 2018-07-10 07:49 | Cardiology Progress Note ---
Subjective Date Seen by Provider: July 10, 2018 Time Seen by Provider: 07:42 Subjective/Events-last exam patient is laying down in bed, feeling better, denied any chest pain. Review of Systems General: No Chills, No Night Sweats, No Fatigue, No Malaise, No Appetite, No Other HEENT: No Head Aches, No Visual Changes, No Eye Pain, No Ear Pain, No Dysphasia, No Sinus Congestion, No Post Nasal Drip, No Sore Throat, No Other Pulmonary: No Dyspnea, No Cough, No Pleuritic Chest Pain, No Other Cardiovascular: No: Chest Pain, Palpitations, Orthopnea, Paroxysmal Noc. Dyspnea, Edema, Lt Headedness, Other Objective-Cardiology Exam Last Set of Vital Signs Vital Signs 07/08/18 07/10/18 07/10/18 07/10/18 14:48 04:00 07:01 07:31 Temp 98.4 Pulse 73 Resp 18 B/P (MAP) 129/73 (91) Pulse Ox 95 O2 Delivery Room Air FiO2 21 Capillary Refill : Less Than 3 Seconds I&O Intake and Output 07/10/18 00:00 Intake Total 2582 ml Output Total 300 ml Balance 2282 ml Intake Oral 2582 ml Output Urine Total 300 ml # Voids 12 # Bowel Movements 5 General: Alert, Oriented X3, Cooperative HEENT: Atraumatic, PERRLA Neck: Supple, No JVD, No Thyromegaly Lungs: Clear to Auscultation, Normal Air Movement Heart: Regular Rate, Normal S1, Normal S2, No Murmurs Abdomen: Normal Bowel Sounds, Soft, No Tenderness, No Hepatosplenomegaly, No Masses Extremities: No Clubbing, No Cyanosis, No Edema, Normal Pulses, No Tenderness/Swelling Skin: No Rashes, No Breakdown, No Significant Lesion Neuro: Normal Gait, Normal Speech, Strength at 5/5 X4 Ext, Normal Tone, Sensation Intact Psych/Mental Status: Mental Status NL, Mood NL A/P-Cardiology Admission Diagnosis Unstable angina Coronary artery disease next and congestive heart failure Hypertension Hyperlipidemia Assessment/Plan Chest pain resembling angina, unstable angina. Cardiac enzymes were negative, stress test was done yesterday showing ischemia involving the inferior wall, planning for cardiac catheterization today. Peripheral edema, normal left ventricular systolic function per echocardiogram, continue to monitor Hypertension, monitor blood pressure Hyperlipidemia, restart home medication monitor lipids Tobaccoism, still an active smoker, educated on smoking cessation Obesity, BMI 30, discussed weight loss Clinical Quality Measures DVT/VTE Risk/Contraindication: Risk Factor Score Per Nursin RFS Level Per Nursing on Admit: 4+=Very High BRANDYN WARREN MD July 10, 2018 07:49
--- NOTE | 2018-07-10 07:51 | Cardiac Procedure Note-CS/ASA ---
Pre-Procedure Note Pre-Op Procedure Note H&P Reviewed The H&P was reviewed, patient examined and no changes noted. Date H&P Reviewed: July 10, 2018 Time H&P Reviewed: 07:51 Conscious Sedation Pre-Proced Time 07:51 ASA Score 3 For ASA 3 and 4: Consider anesthesia and medical clearance. Also, for patients with a history of failed moderate sedation consider anesthesia. Airway Lungs Heart ASA score ASA 1: a normal healthy patient ASA 2: a patient with a mild systemic disease (mid diabetes, controlled hypertension, obesity x ASA 3: a patient with a severe systemic disease that limits activity (angina, COPD, prior Myocardial infarction) ASA 4: a patient with an incapacitating disease that is a constant threat to life (CHF, renal failure) ASA 5: a moribund patient not expected to survive 24 hrs. (ruptured aneurysm) ASA 6: a declared brain- patient whose organs are being harvested. For emergent operations, add the letter E after the classification Mallampati Classification Grade 3 Sedation Plan Analgesia, Amnesia, Plan communicated to team members, Discussed options with patient/fam, Discussed risks with patient/fam The patient is an appropriate candidate to undergo the planned procedure, sedation, and anesthesia. The patient immediately re-assessed prior to indication. BRANDYN WARREN MD July 10, 2018 07:51
[2018-07-10] MEDS: meTOprolol TARTRATE 50 MG (LOPRESSOR) TAB PO SCH (08:08)
[2018-07-10] MEDS: PANTOPRAZOLE 40 MG (PROTONIX) TAB PO SCH (08:08)
[2018-07-10] MEDS: methylPREDNISolone 40 MG/ML (Solu-MEDROL) VIAL IV SCH (08:09)
[2018-07-10] MEDS: lisINopril 5 MG (PRINIVIL) TABLET PO SCH (08:09)
[2018-07-10] MEDS: SENNA W/DOCUSATE (SENOKOT S) TABLET PO SCH (08:14)
[2018-07-10] MEDS: NICOTINE PATCH REMOVAL TP SCH (08:14)
[2018-07-10] MEDS: CLOPIDOGREL 75 MG (PLAVIX) TABLET PO SCH (08:15)
[2018-07-10] MEDS: ASPIRIN E.C. 81 MG (ECOTRIN) TAB PO SCH (08:15)
[2018-07-10] MEDS ORDERED: MIDAZOLAM 5 MG/5 ML (VERSED) VIAL ONE (09:20)
[2018-07-10] MEDS ORDERED: fentaNYL INJECTION 100 MCG/2 ML AMP ONE (09:20)
--- NOTE | 2018-07-10 09:37 | NUR ---
PATIENT LEFT FLOOR VIA WHEELCHAIR FOR HEART CATH
[2018-07-10] MEDS ORDERED: NS IV 1000 ML 1,000 ML IV SCH (10:18)
--- NOTE | 2018-07-10 10:21 | Discharge Inst-Post CATH ---
Discharge Inst-CATH/EP Post Cardiac Cath/EP D/C Inst Follow Up/Plan Appointment with Dr. WARREN's office in 2-4 weeks <b>CARDIAC CATH/EP PROCEDURE DISCHARGE INSTRUCTIONS</b> Cardiac Rehab Please be expecting a follow up call from Cardiac Rehab within in one week. ACTIVITY * Go Home directly and rest. * Limit activity of the leg (or wrist if it was used) for 7 days including aerobics, swimming, jogging, bicycling, etc. * Restrict stair-climbing for 7 days if possible, if not, climb up with your non-cath leg, then bring together on the same step. * Avoid lifting, pushing, pulling or excessive movement of the affected extremity for 7 days. * Customary sexual activity may be resumed after 2 days-use caution not to use a position that strains or causes pain to the affected extremity. * No driving for 24 hours. * NO SMOKING. * Avoid straining for bowel movements for 7 days. * Gentle walking on level ground is allowed. * Returning to work will depend on the type of procedure and the results. Your doctor will discuss this with you. CALL YOUR DOCTOR FOR ANY OF THE FOLLOWING: *If bleeding from the puncture site occurs- Apply gentle pressure to site with clean cloth and call your doctor or EMS. * If a knot or lump forms under the skin, increases in size, or causes pain. * If bruising appears to be worsening or moving further down your leg instead of disappearing. * Temperature above 101 F. CARE OF YOUR GROIN INCISION; * Bruising or purple discoloration of the skin near the puncture site is common. * You may shower only, no bathtub bathing for 5 days. Be careful to avoid slipping as your leg may feel stiff. * If a closure device was used on your femoral artery, please see the attached guide regarding care of the device and your leg. * Leave dressing on FOR 24 hours. CARE OF YOUR WRIST INCISION; * Bruising or purple discoloration of the skin near the puncture site is common. * You may shower. * DO NOT submerge wrist. * Leave dressing on FOR 24 hours. BRANDYN WARREN MD July 10, 2018 10:21
[2018-07-10] MEDS ORDERED: PRED10TA22 PO (10:23)
--- NOTE | 2018-07-10 10:25 | Discharge Summary-Hospitalist ---
Diagnosis/Chief Complaint Date of Admission July 08, 2018 at 11:39 Date of Discharge Discharge Date: July 10, 2018 Discharge Time: 1300 Admission Diagnosis Assessment: Chest pain r/o ACS CAD Coronary stents in past Smoker Obesity Plan: Dr Cuello consultation is appreciated Monitor chest pain EST Monitor labs Smoking cessation Discharge Diagnosis (1) COPD exacerbation Status: Acute (2) Chest pain Status: Resolved (3) CAD (coronary artery disease) Status: Chronic (4) Presence of stent in coronary artery Status: Chronic (5) Smoker Status: Chronic (6) Obesity (BMI 30.0-34.9) Status: Chronic (7) S/P cardiac catheterization Status: Acute Discharge Summary Discharge Physical Exam Allergies: Coded Allergies: NSAIDS (Non-Steroidal Anti-Inflamma (Verified Allergy, Severe, shortness of breath, rash, 07/08/18) codeine (Verified Allergy, Severe, swelling, shortness of breath, 07/08/18) Vitals & I&Os Vital Signs Date Time Temp Pulse Resp B/P (MAP) Pulse Ox O2 Delivery O2 Flow Rate FiO2 07/10/18 11:00 67 121/69 (86) 97 Room Air 07/10/18 08:00 99.0 18 07/08/18 14:48 21 General Appearance: No Apparent Distress, WD/WN Respiratory: Chest Non Tender, No Accessory Muscle Use, No Respiratory Distress, Crackles, Decreased Breath Sounds Neurologic/Psychiatric: Alert, Oriented x3, No Motor/Sensory Deficits, Normal Mood/Affect Hospital Course Was the Problem List Reviewed?: Yes Hospital course: Patient had an uneventful hospital course after he was admitted from [facility] due to chest pain with a prior history of stent placed in the coronary arteries. He was found to be in exacerbation of COPD patient was given IV steroids. Nebulizer treatments were helpful also. Stress test revealed abnormality since he underwent a cardiac catheterization that showed no need of any type of additional intervention. He was deemed stable for discharge by ca rdiology. Smoking cessation was counseled. Oral steroids Rx will be completed at discharge. Labs (last 24 hrs) Patient resulted labs reviewed. Discussion & Recommendations Discharge Planning: <30 minutes discharge planning Discharge Home Medications: Active Scripts Active Prednisone 10 Mg Tab.ds.pk 10 Mg PO DAILY Take 6 tabs(60mg)daily,decrease by 1 tab(10MG)daily. Reported Tylenol Extra Strength (Acetaminophen) 500 Mg Tablet 1,000 Mg PO Q4H PRN Multivitamins (Multivitamin) 1 Each Tablet 1 Tab PO DAILY Vitamin C (Ascorbate Calcium) 500 Mg Tablet 500 Mg PO DAILY Cyclobenzaprine HCl 10 Mg Tablet 10 Mg PO HS Proair Hfa (Albuterol Sulfate) 1 Puff Puff 2 Puff IH Q6H PRN 1 PUFF = 90 MCG Pantoprazole Sodium 40 Mg Tablet.dr 40 Mg PO BID Nitroglycerin 0.4 Mg Tab.subl 0.4 Mg SL UD PRN Asmanex (Mometasone Furoate) 220 Mcg Aer.pow.ba 1 Puff IH BID Metoprolol Tartrate 50 Mg Tablet 25 Mg PO BID TAKES 1/2 (50MG) TABLET Cyclobenzaprine HCl 10 Mg Tablet 10 Mg PO BID PRN Clopidogrel (Clopidogrel Bisulfate) 75 Mg Tablet 75 Mg PO HS Atorvastatin Calcium 80 Mg Tablet 80 Mg PO HS Aspirin EC (Aspirin) 81 Mg Tablet.dr 81 Mg PO DAILY Instructions to patient/family Please see electronic discharge instructions given to patient. Clinical Quality Measures DVT/VTE Risk/Contraindication: Risk Factor Score Per Nursin RFS Level Per Nursing on Admit: 4+=Very High Problem Qualifiers (1) Chest pain: Chest pain type: unspecified Qualified Codes: R07.9 - Chest pain, unspecified (2) CAD (coronary artery disease): Coronary Disease-Associated Artery/Lesion type: [place] artery [place] vs. transplanted heart: [place] heart Associated angina: without angina Qualified Codes: I25.10 - Atherosclerotic heart disease of [place] coronary artery without angina pectoris MARIO RAMACHANDRAN DO July 10, 2018 10:25
--- NOTE | 2018-07-10 10:25 | Cardiac Cath Report ---
Cardiac Cath Report Physician (s)/Organ Recovery Coordinator (s) Physician BRANDYN WARREN MD Pre-Procedure Diagnosis Pre-Procedure Diagnosis: chest pain, coronary artery disease Post-Procedure Note Procedure Start Date: July 10, 2018 Name of Procedure: left heart catheterization Findings/Procedure Note PROCEDURE NOTE: 68 years old gentleman with history of coronary artery disease multiple stents in the past. Was admitted with chest pain, had an abnormal stress test. Scheduled for cardiac catheterization. After explaining the procedure to the patient, all pros and cons were explained, all questions were answered. The patient signed the consent and then he was placed on the cardiac catheterization laboratory. Groin was prepped SL fashion local anesthesia was used. Sheath placed in the right femoral artery. Megan right and left catheter were used to access the coronary system. Pigtail was used to access the left ventricular cavity. Left ventriculogram was not done, pressure was measured At the end of the procedure the sheath was removed. Closure device was used FINDINGS: Hemodynamics LV 123/21, end-diastolic pressure of 21 Aorta 122/59 mean of 83 ANATOMY: Left Main is free of obstructive disease Left Anterior Descending has mild disease nonobstructive disease Left Circumflex has mild disease nonobstructive disease Ramus intermedius has 2 stents proximally, mild to moderate disease nonobstructive disease Right Coronory Artery is small artery, dominant artery with mild disease nonobstructive disease CONCLUSION: 1. Patent stents in the ramus intermedius with mild to moderate disease 2. Otherwise mild coronary artery disease 3. Mildly elevated left ventricular end-diastolic pressure DISCUSSION AND RECOMMENDATION: Anesthesia Type: Conscious Sedation Estimated blood loss (mL): 20 ml Contrast Amount: 31 ml Total Radiation Dose: 328 mGy Post-Procedure Diagnosis Post-operative diagnosis: Chest pain Coronary artery disease COPD Hypertension BRNADYN WARREN MD July 10, 2018 10:25
[2018-07-10] MEDS ORDERED: PATIENT MAY USE OWN MEDS, ALL PO SCH (10:30)
--- NOTE | 2018-07-10 13:29 | NUR ---
CM/SS, respond to consult to assess for post discharge plan and Rx. Visited with patient and his daughter/POA-HC Tatyana Valente. Patient has [employer] insurance. One new Rx was transmitted to Karissa [facility]bert, confirmed and updated Tatyana prieto same. She indicates she will be paying for this Rx if patient is unable to do so. Patient indicates he is established with [facility] and [facility]. Contacted [facility] and faxed obwling clinical information for his records there. Tatyana is POA-HC and they are pursuing a full General Power of Printing Table Hand so that she can legally assist patient as necessary. No other needs indicated at this time.
== END 2018-07-10 13:00 | disposition home or self-care (01) ==
LOC: ER FS 10:07 → 4TH 11:39 → UNDOADMOB 11:39 → 4TH 13:10 → ICU 07-10 10:45 → 4TH 07-10 10:45 → ICU 07-10 14:30 → 4TH 07-10 14:30 → UNDODISOB 07-10 14:55
PROVIDERS: ADMIT Internal Medicine; ATTEND Internal Medicine
DX: R07.9 Chest pain, unspecified (principal); J44.1 Chronic obstructive pulmonary disease with (acute) exacerbation; I25.10 Atherosclerotic heart disease of native coronary artery without angina pectoris; I11.0 Hypertensive heart disease with heart failure; I50.23 Acute on chronic systolic (congestive) heart failure; E78.5 Hyperlipidemia, unspecified; K21.9 Gastro-esophageal reflux disease without esophagitis; F17.210 Nicotine dependence, cigarettes, uncomplicated; R06.2 Wheezing; R60.0 Localized edema; E66.9 Obesity, unspecified; Z68.30 Body mass index [BMI] 30.0-30.9, adult; Z79.02 Long term (current) use of antithrombotics/antiplatelets; Z79.82 Long term (current) use of aspirin; Z79.899 Other long term (current) drug therapy; Z95.5 Presence of coronary angioplasty implant and graft
CPT/HCPCS: 36415; 71045; 78452; 80053; 80061; 82962; 83735; 83880; 84484; 85007; 85025; 85027; 85379; 85610; 85730; 93005; 93017; 93041; 93306; 93458; 94640; 94760; 96374; G0378

== ENCOUNTER 2018-07-27 09:29 | Emergency (ER) | payer OTHER ==
[~2018-07-27] VITALS: Ht 177.8 cm; Wt 97.1 kg
[~2018-07-27 09:29] MED LIST: ACET-2267 PO; ASCO-262 PO; ASPI-983 PO; ATOR80TA76 PO; CLOP75TA28 PO; CYCL10TA9 PO; METO50TA15 PO; MOME220A2 IH; MULT1TAB69 PO; NITR0.4T39 SL; PANT40TA3 PO; PRED10TA22 PO; RT-ALBUINH IH
--- OUTSIDE RECORDS SUMMARY | 2018-07-27 09:35 | XMS REPORT | Continuity of Care Document ---
Author Organization Unknown Address Unknown Allergies Active Description Code Type Severity Reaction Onset Reported/Identified Relationship to Patient Clinical Status Yes codeine [id number] Drug Allergy Severe swelling, short 07/08/2018 Yes NSAIDS (Non-Steroidal Anti-Inflamma [id number] Drug Allergy Severe shortness of br 07/08/2018 Medications There is no data. 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 07/10/2018 MARIO RAMACHANDRAN DO Ot J44.1 CHRONIC OBSTRUCTIVE PULMONARY DISEASE W 07/10/2018 ROSEANN RAMACHANDRAN DOI Ot K21.9 GASTRO-ESOPHAGEAL REFLUX DISEASE WITHOUT 07/10/2018 MARIO RAMACHANDRAN DO Ot R06.2 WHEEZING 07/10/2018 MARIO RAMACHANDRAN DO Ot R07.9 CHEST PAIN, UNSPECIFIED 07/10/2018 MARIO RAMACHANDRAN DO Ot R60.0 LOCALIZED EDEMA 07/10/2018 MARIO RAMACHANDRAN DO Ot Z68.30 BODY MASS INDEX (BMI) 30.0-30.9, ADULT 07/10/2018 MARIO RAMACHANDRAN DO Ot Z79.02 SUPERVISOR CARDING (CURRENT) USE OF ANTITHROMBOTI 07/10/2018 ROSEANN RAMACHANDRAN DOI Ot Z79.82 SUPERVISOR CARDING (CURRENT) USE OF ASPIRIN 07/10/2018 MARIO RAMACHANDRAN DO Ot Z79.899 OTHER DETENTION (CURRENT) DRUG THERAPY 07/10/2018 MARIO RAMACHANDRAN DO Ot Z95.5 PRESENCE OF CORONARY ANGIOPLASTY IMPLANT Procedures There is no data. Results Test Result Range Complete blood count (CBC) with automated white blood cell (WBC) differential - 07/08/18 10:10 Blood leukocytes automated count (number/volume) 5.5 10*3/uL 4.3-11.0 Blood erythrocytes automated count (number/volume) 4.75 10*6/uL 4.35-5.85 Venous blood hemoglobin measurement (mass/volume) 10.7 g/dL 13.3-17.7 Blood hematocrit (volume fraction) 35 % 40-54 Automated erythrocyte mean corpuscular volume 74 [foz_us] 80-99 Automated erythrocyte mean corpuscular hemoglobin (mass per erythrocyte) 23 pg 25-34 Automated erythrocyte mean corpuscular hemoglobin concentration measurement (mass/volume) 30 g/dL 32-36 Automated erythrocyte distribution width ratio 20.9 % 10.0- 14.5 Automated blood platelet count (count/volume) 341 10*3/uL 130-400 Automated blood platelet mean volume measurement 9.5 [foz_us] 7.4-10.4 Automated blood neutrophils/100 leukocytes 48 % 42-75 Automated blood lymphocytes/100 leukocytes 35 % 12-44 Blood monocytes/100 leukocytes 13 % 0-12 Automated blood eosinophils/100 leukocytes 3 % 0-10 Automated blood basophils/100 leukocytes 1 % 0-10 Blood neutrophils automated count (number/volume) 2.6 10*3 1.8-7.8 Blood lymphocytes automated count (number/volume) 1.9 10*3 1.0-4.0 Blood monocytes automated count (number/volume) 0.7 10*3 0.0- 1.0 Automated eosinophil count 0.2 10*3/uL 0.0-0.3 Automated blood basophil count (count/volume) 0.1 10*3/uL 0.0-0.1 Comprehensive metabolic panel - 07/08/18 10:10 Serum or plasma sodium measurement (moles/volume) 140 mmol/L 135-145 Serum or plasma potassium measurement (moles/volume) 4.0 mmol/L 3.6-5.0 Serum or plasma chloride measurement (moles/volume) 102 mmol/L 98-107 Carbon dioxide 27 mmol/L 21-32 Serum or plasma anion gap determination (moles/volume) 11 mmol/L 5-14 Serum or plasma urea nitrogen measurement (mass/volume) 12 mg/dL 7-18 Serum or plasma creatinine measurement (mass/volume) 0.96 mg/dL 0.60-1.30 Serum or plasma urea nitrogen/creatinine mass ratio 13 NRG Serum or plasma creatinine measurement with calculation of estimated glomerular filtration rate > NRG Serum or plasma glucose measurement (mass/volume) 117 mg/dL 70-105 Serum or plasma calcium measurement (mass/volume) 8.7 mg/dL 8.5-10.1 Serum or plasma total bilirubin measurement (mass/volume) 0.7 mg/dL 0.1-1.0 Serum or plasma alkaline phosphatase measurement (enzymatic activity/volume) 82 U/L 40-136 Serum or plasma aspartate aminotransferase measurement (enzymatic activity/volume) 22 U/L 5-34 Serum or plasma alanine aminotransferase measurement (enzymatic activity/volume) 19 U/L 0-55 Serum or plasma protein measurement (mass/volume) 6.7 g/dL 6.4-8.2 Serum or plasma albumin measurement (mass/volume) 4.1 g/dL 3.2-4.5 CALCIUM CORRECTED 8.6 mg/dL 8.5-10.1 Magnesium - 07/08/18 10:10 Magnesium 1.9 mg/dL 1.8-2.4 TROPONIN T - 07/08/18 10:10 TROPONIN T 11 % <=15 PROBNP FS - 07/08/18 10:10 PROBNP FS 56.2 pg/mL <75.0 PT panel in platelet poor plasma by coagulation assay - 07/08/18 10:10 Prothrombin time (PT) in platelet poor plasma by coagulation assay 14.1 s 12.2-14.7 INR in platelet poor plasma or blood by coagulation assay 1.1 0.8-1.4 Activated partial thromboplastin time (aPTT) in platelet poor plasma bycoagulation assay - 07/08/18 10:10 Activated partial thromboplastin time (aPTT) in platelet poor plasma bycoagulation assay 31 s 24-35 Fibrin D-dimer FEU measurement in platelet poor plasma (mass/volume) - 07/08/18 10:10 Fibrin D-dimer FEU measurement in platelet poor plasma (mass/volume) 0.57 ug/mL 0.00-0.49 Capillary blood glucose measurement by glucometer (mass/volume) - 07/08/18 14:54 Capillary blood glucose measurement by glucometer (mass/volume) 121 mg/dL 70-110 Automated blood complete blood count (hemogram) panel - 07/09/18 05:11 Blood leukocytes automated count (number/volume) 6.5 10*3/uL 4.3-11.0 Blood erythrocytes automated count (number/volume) 4.73 10*6/uL 4.35-5.85 Venous blood hemoglobin measurement (mass/volume) 10.8 g/dL 13.3-17.7 Blood hematocrit (volume fraction) 34 % 40-54 Automated erythrocyte mean corpuscular volume 72 [foz_us] 80-99 Automated erythrocyte mean corpuscular hemoglobin (mass per erythrocyte) 23 pg 25-34 Automated erythrocyte mean corpuscular hemoglobin concentration measurement (mass/volume) 32 g/dL 32-36 Automated erythrocyte distribution width ratio 21.1 % 10.0- 14.5 Automated blood platelet count (count/volume) 347 10*3/uL 130-400 Automated blood platelet mean volume measurement 10.2 [foz_us] 7.4-10.4 Blood CBC with ordered manual differential panel - 07/09/18 05:11 Automated blood neutrophils/100 leukocytes 53 % 42-75 Automated blood lymphocytes/100 leukocytes 29 % 12-44 Blood monocytes/100 leukocytes 8 % NRG Automated blood eosinophils/100 leukocytes 4 % 0-10 Automated blood basophils/100 leukocytes 1 % 0-10 Blood neutrophils automated count (number/volume) 3.5 10*3 1.8-7.8 Blood lymphocytes automated count (number/volume) 1.9 10*3 1.0-4.0 Blood monocytes automated count (number/volume) 0.8 10*3 0.0- 1.0 Automated eosinophil count 0.3 10*3/uL 0.0-0.3 Automated blood basophil count (count/volume) 0.1 10*3/uL 0.0-0.1 Manual blood segmented neutrophils/100 leukocytes 63 % NRG Blood band neutrophils/100 leukocytes 0 % NRG Manual blood lymphocytes/100 leukocytes 21 % NRG Manual eosinophils/100 leukocytes in nose 6 % NRG Manual blood basophils/100 leukocytes 0 % NRG Blood lymphocytes variant/100 leukocytes 2 % NRG Blood anisocytosis detection by light microscopy SLIGHT NRG Blood macrocytes detection by light microscopy SLIGHT NRG Blood ovalocytes detection by light microscopy SLIGHT NRG Blood hypochromia detection by light microscopy MODERATE NRG Blood target cells detection by light microscopy SLIGHT NRG Comprehensive metabolic panel - 07/09/18 05:11 Serum or plasma sodium measurement (moles/volume) 139 mmol/L 135-145 Serum or plasma potassium measurement (moles/volume) 3.9 mmol/L 3.6-5.0 Serum or plasma chloride measurement (moles/volume) 108 mmol/L 98-107 Carbon dioxide 23 mmol/L 21-32 Serum or plasma anion gap determination (moles/volume) 8 mmol/L 5-14 Serum or plasma urea nitrogen measurement (mass/volume) 14 mg/dL 7-18 Serum or plasma creatinine measurement (mass/volume) 0.86 mg/dL 0.60-1.30 Serum or plasma urea nitrogen/creatinine mass ratio 16 NRG Serum or plasma creatinine measurement with calculation of estimated glomerular filtration rate > NRG Serum or plasma glucose measurement (mass/volume) 106 mg/dL 70-105 Serum or plasma calcium measurement (mass/volume) 8.8 mg/dL 8.5-10.1 Serum or plasma total bilirubin measurement (mass/volume) 0.4 mg/dL 0.1-1.0 Serum or plasma alkaline phosphatase measurement (enzymatic activity/volume) 87 U/L 40-136 Serum or plasma aspartate aminotransferase measurement (enzymatic activity/volume) 23 U/L 5-34 Serum or plasma alanine aminotransferase measurement (enzymatic activity/volume) 18 U/L 0-55 Serum or plasma protein measurement (mass/volume) 6.4 g/dL 6.4-8.2 Serum or plasma albumin measurement (mass/volume) 3.8 g/dL 3.2-4.5 CALCIUM CORRECTED 9.0 mg/dL 8.5-10.1 Magnesium - 07/09/18 05:11 Magnesium 2.0 mg/dL 1.8-2.4 Serum or plasma troponin i.cardiac measurement (mass/volume) - 07/09/18 05:11 Serum or plasma troponin i.cardiac measurement (mass/volume) < ng/mL <0.028 Lipid 1996 panel - 07/09/18 05:11 Serum or plasma triglyceride measurement (mass/volume) 45 mg/dL <150 Serum or plasma cholesterol measurement (mass/volume) 96 mg/dL < 200 Serum or plasma cholesterol in HDL measurement (mass/volume) 37 mg/dL 40-60 Cholesterol in LDL [mass/volume] in serum or plasma by direct assay 52 mg/dL 1-129 Serum or plasma cholesterol in VLDL measurement (mass/volume) 9 mg/dL 5-40 Encounters ACCT No. Visit Date/Time Discharge Status Pt. Type Provider Facility Loc./Unit Complaint [id number] 07/08/2018 13:10:00 07/10/2018 13:00:00 DIS Inpatient MARIO RAMACHANDRAN DO [facility] ICU CP R/O ACS
--- NOTE | 2018-07-27 09:45 | NUR ---
Pt denies excessive intake of caffeine. "Laid off the coffee like I was told, drink tea now." Educated on caffeine categories.
--- NOTE | 2018-07-27 10:23 | ED Dyspnea ---
General Chief Complaint: Chest Pain Stated Complaint: LOW HR,SOB Source of Information: Patient, Old Records, RN Notes Reviewed Exam Limitations: No Limitations History of Present Illness Date Seen by Provider: Jul 27, 2018 Time Seen by Provider: 10:00 Initial Comments Patient states he was referred here by his [facility] provider p/ contacting this AM regarding his BP monitor reading his heart rate to be 39. States when he woke up this AM he felt cold and could feel his heart beat in his chest. Was able to take his dog for a walk s/ difficulty. Denies any pain, N/V, dyspnea, or diaphoresis. Timing/Duration: 1-3 Hours Activities at Onset: Rest Prior Episodes/Possible Cause: Unknown Cause Modifying Factors: Improves With Other (none) Associated Symptoms: Denies Symptoms Allergies and Home Medications Allergies Coded Allergies: NSAIDS (Non-Steroidal Anti-Inflamma (Verified Allergy, Severe, shortness of breath, rash, 07/08/18) codeine (Verified Allergy, Severe, swelling, shortness of breath, 07/08/18) Home Medications Acetaminophen 500 Mg Tablet, 1,000 MG PO Q4H PRN for PAIN-MILD, (Reported) Albuterol Sulfate 1 Puff Puff, 2 PUFF IH Q6H PRN for SHORTNESS OF BREATH, (Reported) 1 PUFF = 90 MCG Ascorbate Calcium 500 Mg Tablet, 500 MG PO DAILY, (Reported) Aspirin 81 Mg Tablet.dr, 81 MG PO DAILY, (Reported) Atorvastatin Calcium 80 Mg Tablet, 80 MG PO HS, (Reported) Clopidogrel Bisulfate 75 Mg Tablet, 75 MG PO HS, (Reported) Cyclobenzaprine HCl 10 Mg Tablet, 10 MG PO BID PRN for SPASMS, (Reported) Cyclobenzaprine HCl 10 Mg Tablet, 10 MG PO HS, (Reported) Metoprolol Tartrate 50 Mg Tablet, 25 MG PO BID, (Reported) TAKES 1/2 (50MG) TABLET Mometasone Furoate 220 Mcg Aer.pow.ba, 1 PUFF IH BID, (Reported) Multivitamin 1 Each Tablet, 1 TAB PO DAILY, (Reported) Nitroglycerin 0.4 Mg Tab.subl, 0.4 MG SL UD PRN for CHEST PAIN, (Reported) Pantoprazole Sodium 40 Mg Tablet.dr, 40 MG PO BID, (Reported) Prednisone 10 Mg Tab.ds.pk, 10 MG PO DAILY Take 6 tabs(60mg)daily,decrease by 1 tab(10MG)daily. Prescribed by: MARIO RAMACHANDRAN on 07/10/18 1023 Patient Home Medication List Home Medication List Reviewed: Yes Review of Systems Review of Systems Constitutional: see HPI Cardiovascular: see HPI, palpitations All Other Systems Reviewed Negative Unless Noted: Yes (Negative excepted noted.) Past Pdjhven-Yeweko-Itcghu Hx Patient Social History Drug of Choice: MJ Type Used: Cigarettes 2nd Hand Smoke Exposure: Yes Recent Hopitalizations: No (hospitalized Feb 2018 @ [facility]) Immunizations Up To Date Tetanus Booster (TDap): Unknown Date of Pneumonia Vaccine: Nov 10, 2017 Date of Influenza Vaccine: Nov 10, 2017 Seasonal Allergies Seasonal Allergies: No Past Medical History Surgeries: Yes (cyst removal) Coronary Stent Respiratory: Yes (Hx Costochondral chest pain) Chronic Bronchitis, COPD Cardiac: Yes (Hx WPW) Coronary Artery Disease, High Cholesterol, Hypertension Neurological: No Genitourinary: No Gastrointestinal: Yes Gastroesophageal Reflux Musculoskeletal: Yes (back pain r/t pulled muscles) Endocrine: No HEENT: No Cancer: No Psychosocial: No Integumentary: No Blood Disorders: No Physical Exam Vital Signs Vital Signs - First Documented 07/27/18 09:33 Temp 98.8 Pulse 61 Resp 18 B/P (MAP) 146/77 (100) Pulse Ox 98 O2 Delivery Room Air Capillary Refill : Height, Weight, BMI Height: 5'10.00" Weight: 214lbs. 0.0oz. 97.213362aq; 30.7 BMI Method:Stated General Appearance: No Apparent Distress, WD/WN Respiratory: No Respiratory Distress Cardiovascular: Regular Rate, Rhythm, Other (frequent PVC's noted on monitor) Rectal: Deferred Neurologic/Psychiatric: Alert, Oriented x3, No Motor/Sensory Deficits, Normal Mood/Affect Skin: Warm/Dry; No Rash Progress/Results/Core Measures Results/Orders Lab Results Laboratory Tests Test 07/27/18 09:40 Range/Units White Blood Count 6.8 4.3-11.0 10^3/uL Red Blood Count 5.04 4.35-5.85 10^6/uL Hemoglobin 11.8 L 13.3-17.7 G/DL Hematocrit 39 L 40-54 % Mean Corpuscular Volume 78 L 80-99 FL Mean Corpuscular Hemoglobin 23 L 25-34 PG Mean Corpuscular Hemoglobin Concent 30 L 32-36 G/DL Red Cell Distribution Width 23.9 H 10.0-14.5 % Platelet Count 289 130-400 10^3/uL Mean Platelet Volume 10.3 7.4-10.4 FL Neutrophils (%) (Auto) 62 42-75 % Lymphocytes (%) (Auto) 23 12-44 % Monocytes (%) (Auto) 11 0-12 % Eosinophils (%) (Auto) 3 0-10 % Basophils (%) (Auto) 1 0-10 % Neutrophils # (Auto) 4.2 1.8-7.8 X 10^3 Lymphocytes # (Auto) 1.6 1.0-4.0 X 10^3 Monocytes # (Auto) 0.7 0.0-1.0 X 10^3 Eosinophils # (Auto) 0.2 0.0-0.3 10^3/uL Basophils # (Auto) 0.1 0.0-0.1 10^3/uL Sodium Level 141 135-145 MMOL/L Potassium Level 4.5 3.6-5.0 MMOL/L Chloride Level 104 98-107 MMOL/L Carbon Dioxide Level 27 21-32 MMOL/L Anion Gap 10 5-14 MMOL/L Blood Urea Nitrogen 17 7-18 MG/DL Creatinine 1.06 0.60-1.30 MG/DL Estimat Glomerular Filtration Rate > 60 BUN/Creatinine Ratio 16 Glucose Level 127 H 70-105 MG/DL Calcium Level 9.1 8.5-10.1 MG/DL Corrected Calcium 9.0 8.5-10.1 MG/DL Magnesium Level 1.9 1.8-2.4 MG/DL Total Bilirubin 0.4 0.1-1.0 MG/DL Aspartate Amino Transf (AST/SGOT) 22 5-34 U/L Alanine Aminotransferase (ALT/SGPT) 17 0-55 U/L Alkaline Phosphatase 83 40-136 U/L Troponin T 11 <=15 NG/L Pro-B-Type Natriuretic Peptide 63.7 <75.0 PG/ML Total Protein 6.9 6.4-8.2 GM/DL Albumin 4.1 3.2-4.5 GM/DL My Orders Orders - JUANA WINCHESTER DO Ed Iv/Invasive Line Start (07/27/18 10:20) Ekg Tracing (07/27/18 10:20) Monitor-Rhythm Ecg Trace Only (07/27/18 10:20) Cbc With Automated Diff (07/27/18 10:20) Comprehensive Metabolic Panel (07/27/18 10:20) Magnesium (07/27/18 10:20) Troponin T (07/27/18 10:20) Probnp Fs (07/27/18 10:20) Chest 1 View Ap/Pa Only (07/27/18 10:20) Vital Signs/I&O 07/27/18 07/27/18 07/27/18 09:33 09:33 11:36 Temp 98.8 97.9 Pulse 61 69 Resp 18 19 B/P (MAP) 146/77 (100) 135/56 (82) Pulse Ox 98 98 O2 Delivery Room Air Room Air Room Air Progress Progress Note : Progress Note Patient's heart rate remained in the 60's the entire time he was here in the ED. Suspect his BP monitor wasn't recording his heart rate correctly because of his fairly frequent PVC's. Initial ECG Impression Date: Jul 27, 2018 Initial ECG Impression Time: 10:04 Initial ECG Rate: 60 Initial ECG Rhythm: Normal Sinus Initial ECG Impression: Nonspecific Changes Initial ECG Comparisson: No Previous ECG Available Departure Impression Primary Impression: PVCs (premature ventricular contractions) Disposition: 01 HOME, SELF-CARE Condition: Stable Departure-Patient Inst. Decision time for Depature: 11:15 Referrals: BRANDYN WARREN MD Patient Instructions: Ventricular Premature Beats JUANA WINCHESTER DO Jul 27, 2018 10:23
[2018-07-27 10:32] LABS: BASOPHILS # (AUTO) 0.1 10^3/uL (0.0-0.1); BASOPHILS % (AUTO) 1 % (0-10); EOSINOPHILS # (AUTO) 0.2 10^3/uL (0.0-0.3); EOSINOPHILS % (AUTO) 3 % (0-10); HEMATOCRIT 39 % (40-54); HEMOGLOBIN 11.8 G/DL (13.3-17.7); LYMPHOCYTES # (AUTO) 1.6 X 10^3 (1.0-4.0); LYMPHOCYTES % (AUTO) 23 % (12-44); MEAN CORPUSCULAR HEMOGLOBIN 23 PG (25-34); MEAN CORPUSCULAR HGB CONC 30 G/DL (32-36); MEAN CORPUSCULAR VOLUME 78 FL (80-99); MEAN PLATELET VOLUME 10.3 FL (7.4-10.4); MONOCYTES # (AUTO) 0.7 X 10^3 (0.0-1.0); MONOCYTES % (AUTO) 11 % (0-12); NEUTROPHILS # (AUTO) 4.2 X 10^3 (1.8-7.8); NEUTROPHILS % (AUTO) 62 % (42-75); PLATELET COUNT 289 10^3/uL (130-400); RED CELL DISTRIBUTION WIDTH 23.9 % (10.0-14.5); WHITE BLOOD COUNT 6.8 10^3/uL (4.3-11.0)
--- NOTE | 2018-07-27 10:43 | Diagnostic Imaging Report ---
PATIENT HISTORY: Chest pain. TECHNIQUE: Single frontal view of the chest. COMPARISON: 07/08/2018. FINDINGS: The lung volumes are normal. No focal consolidation is seen. No large pleural effusion or pneumothorax is seen. The cardiomediastinal silhouette is normal in size and contour. No acute osseous abnormality is seen. A radiopaque bottle is seen lateral to the lower right chest. IMPRESSION: No acute pulmonary abnormality seen. Dictated by: Dictated on workstation # [id number]
[2018-07-27 11:02] LABS: ALANINE AMINOTRANSFERASE 17 U/L (0-55); ALBUMIN 4.1 GM/DL (3.2-4.5); ALKALINE PHOSPHATASE 83 U/L (40-136); BILIRUBIN,TOTAL 0.4 MG/DL (0.1-1.0); BUN/CREATININE RATIO 16; CALCIUM 9.1 MG/DL (8.5-10.1); CARBON DIOXIDE 27 MMOL/L (21-32); CHLORIDE 104 MMOL/L (98-107); CREATININE SERUM 1.06 MG/DL (0.60-1.30); GFR ESTIMATED > 60; GLUCOSE 127 MG/DL (70-105); MAGNESIUM 1.9 MG/DL (1.8-2.4); POTASSIUM 4.5 MMOL/L (3.6-5.0); SODIUM 141 MMOL/L (135-145); TOTAL PROTEIN 6.9 GM/DL (6.4-8.2)
[2018-07-27 11:36] VITALS: BP 135/56
--- NOTE | 2018-07-27 11:36 | NUR ---
Pt discharged to home after verbalizing understanding of home instructions reviewed. No family present during instructions. {Pt reports lives alone and manages his own affairs}. Pt's dgt called numerous times asking for patient info while nursing staff busy with emergency and reports she is ALLEN driscoll wants nurses to give her info, will call back. Spoke with patient and he will read his discharge instructions about PVC's to her. Pt was departing awaiting ride from his "future" dgt-in-law to home.
== END 2018-07-27 11:36 | disposition home or self-care (01) ==
LOC: EDUNIT# 09:29 → ER FS 09:31
DX: I49.3 Ventricular premature depolarization (principal); J44.9 Chronic obstructive pulmonary disease, unspecified; I25.10 Atherosclerotic heart disease of native coronary artery without angina pectoris; E78.00 Pure hypercholesterolemia, unspecified; I10 Essential (primary) hypertension; K21.9 Gastro-esophageal reflux disease without esophagitis; Z88.6 Allergy status to analgesic agent; Z88.5 Allergy status to narcotic agent; Z79.82 Long term (current) use of aspirin; Z79.02 Long term (current) use of antithrombotics/antiplatelets; Z79.52 Long term (current) use of systemic steroids; Z95.5 Presence of coronary angioplasty implant and graft
CPT/HCPCS: 36415; 71045; 80053; 83735; 83880; 84484; 85025; 93041

== ENCOUNTER 2020-04-05 13:01 | Emergency (ER) | payer OTHER ==
[~2020-04-05] VITALS: Ht 177.8 cm; Wt 81.6 kg
[~2020-04-05 13:01] MED LIST changes: +ASPI-1238 PO; -ASPI-983 PO; +MULT-567 PO; -MULT1TAB69 PO; -PANT40TA3 PO; +PANT40TA52 PO
--- NOTE | 2020-04-05 13:06 | ED Chest Pain ---
General Stated Complaint: CHEST PAIN; SOB; SYNCOPE History of Present Illness Date Seen by Provider: Apr 05, 2020 Time Seen by Provider: 13:06 Initial Comments 70-year-old male presents with chest pain, shortness of breath and he describes a syncope event that was brief. Patient reports that the chest pain started around 9 PM last night. Patient was seen at that time at [facility] and had a negative cardiac work-up along with a negative Covid screen. Patient presents today because he reports that the pain started again after he walked his dog. The pain is reproducible with palpation of the left chest or with resistance of left arm movement. Patient did not have any diaphoresis. Patient has a prior cardiac history. Patient did have a cardiac cath July 10, 2018. He had very mild nonobstructive disease in his 2 stents. Patient does have a history of COPD. He continues to smoke. Allergies and Home Medications Allergies Coded Allergies: NSAIDS (Non-Steroidal Anti-Inflamma (Verified Allergy, Severe, shortness of breath, rash, 07/08/18) codeine (Verified Allergy, Severe, swelling, shortness of breath, 07/08/18) Home Medications Acetaminophen 500 Mg Tablet, 1,000 MG PO Q4H PRN for PAIN-MILD, (Reported) Albuterol Sulfate 1 Puff Puff, 2 PUFF IH Q6H PRN for SHORTNESS OF BREATH, (Reported) 1 PUFF = 90 MCG Ascorbate Calcium 500 Mg Tablet, 500 MG PO DAILY, (Reported) Aspirin 81 Mg Tablet.dr, 81 MG PO DAILY, (Reported) Atorvastatin Calcium 80 Mg Tablet, 80 MG PO HS, (Reported) Clopidogrel Bisulfate 75 Mg Tablet, 75 MG PO HS, (Reported) Cyclobenzaprine HCl 10 Mg Tablet, 10 MG PO BID PRN for SPASMS, (Reported) Cyclobenzaprine HCl 10 Mg Tablet, 10 MG PO HS, (Reported) Metoprolol Tartrate 50 Mg Tablet, 25 MG PO BID, (Reported) TAKES 1/2 (50MG) TABLET Mometasone Furoate 220 Mcg Aer.pow.ba, 1 PUFF IH BID, (Reported) Multivitamin 1 Each Tablet, 1 TAB PO DAILY, (Reported) Nitroglycerin 0.4 Mg Tab.subl, 0.4 MG SL UD PRN for CHEST PAIN, (Reported) Pantoprazole Sodium 40 Mg Tablet.dr, 40 MG PO BID, (Reported) Prednisone 10 Mg Tab.ds.pk, 10 MG PO DAILY Take 6 tabs(60mg)daily,decrease by 1 tab(10MG)daily. Prescribed by: MARIO RAMACHANDRAN on 07/10/18 1023 Patient Home Medication List Home Medication List Reviewed: Yes Review of Systems Review of Systems Constitutional: No chills, No fever EENTM: No Symptoms Reported Respiratory: See HPI, Shortness of Air Cardiovascular: See HPI, Chest Pain Gastrointestinal: No Symptoms Reported Genitourinary: No Symptoms Reported Musculoskeletal: see HPI Skin: no symptoms reported Psychiatric/Neurological: No Symptoms Reported Past [id number]-Lekjmx Hx Past Med/Social Hx: Reviewed Nursing Past Med/Soc Hx Patient Social History Drug of Choice: MJ Type Used: Cigarettes 2nd Hand Smoke Exposure: Yes Recent Hopitalizations: Yes (hospitalized [facility] June 2018) Immunizations Up To Date Tetanus Booster (TDap): Unknown Date of Pneumonia Vaccine: Nov 10, 2017 Date of Influenza Vaccine: Nov 10, 2017 Seasonal Allergies Seasonal Allergies: No Past Medical History Surgeries: Yes (cyst removal) Coronary Stent Respiratory: Yes (Hx Costochondral chest pain) Chronic Bronchitis, COPD Cardiac: Yes (Hx WPW) Coronary Artery Disease, High Cholesterol, Hypertension Neurological: No Genitourinary: No Gastrointestinal: Yes Gastroesophageal Reflux Musculoskeletal: Yes (back pain r/t pulled muscles) Endocrine: No HEENT: No Cancer: No Psychosocial: No Integumentary: No Blood Disorders: No Physical Exam Vital Signs Vital Signs - First Documented Capillary Refill : Height, Weight, BMI Height: 5'10.00" Weight: 214lbs. 0.0oz. 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 Norm as Tested Skin: Normal Color, Warm/Dry Progress/Results/Core Measures Results/Orders Lab Results Laboratory Tests Test 04/05/20 13:14 Range/Units White Blood Count 9.3 4.3-11.0 10^3/uL Red Blood Count 5.29 4.35-5.85 10^6/uL Hemoglobin 15.8 13.3-17.7 G/DL Hematocrit 47 40-54 % Mean Corpuscular Volume 90 80-99 FL Mean Corpuscular Hemoglobin 30 25-34 PG Mean Corpuscular Hemoglobin Concent 33 32-36 G/DL Red Cell Distribution Width 14.5 10.0-14.5 % Platelet Count 304 130-400 10^3/uL Mean Platelet Volume 10.5 H 7.4-10.4 FL Immature Granulocyte % (Auto) 0 % Neutrophils (%) (Auto) 64 42-75 % Lymphocytes (%) (Auto) 24 12-44 % Monocytes (%) (Auto) 10 0-12 % Eosinophils (%) (Auto) 1 0-10 % Basophils (%) (Auto) 1 0-10 % Neutrophils # (Auto) 5.9 1.8-7.8 X 10^3 Lymphocytes # (Auto) 2.3 1.0-4.0 X 10^3 Monocytes # (Auto) 0.9 0.0-1.0 X 10^3 Eosinophils # (Auto) 0.1 0.0-0.3 10^3/uL Basophils # (Auto) 0.1 0.0-0.1 10^3/uL Immature Granulocyte # (Auto) 0.0 0.0-0.1 10^3/uL Prothrombin Time 13.0 12.2-14.7 SEC INR Comment 1.0 0.8-1.4 Activated Partial Thromboplast Time 29 24-35 SEC Sodium Level 139 135-145 MMOL/L Potassium Level 4.1 3.6-5.0 MMOL/L Chloride Level 104 98-107 MMOL/L Carbon Dioxide Level 25 21-32 MMOL/L Anion Gap 10 5-14 MMOL/L Blood Urea Nitrogen 14 7-18 MG/DL Creatinine 0.82 0.60-1.30 MG/DL Estimat Glomerular Filtration Rate > 60 BUN/Creatinine Ratio 17 Glucose Level 127 H 70-105 MG/DL Calcium Level 9.1 8.5-10.1 MG/DL Corrected Calcium 8.5-10.1 MG/DL Magnesium Level 1.7 1.6-2.4 MG/DL Total Bilirubin 0.6 0.1-1.0 MG/DL Aspartate Amino Transf (AST/SGOT) 15 5-34 U/L Alanine Aminotransferase (ALT/SGPT) 11 0-55 U/L Alkaline Phosphatase 90 40-136 U/L Myoglobin 51.4 10.0-92.0 NG/ML Troponin I < 0.30 <0.30 NG/ML Pro-B-Type Natriuretic Peptide 68.0 <75.0 PG/ML Total Protein 7.3 6.4-8.2 GM/DL Albumin 4.6 H 3.2-4.5 GM/DL My Orders Orders - FINN,MARTIN L DO Cbc With Automated Diff (04/05/20 13:06) Magnesium (04/05/20 13:06) Chest 1 View Ap/Pa Only (04/05/20 13:06) Ekg Tracing (04/05/20 13:06) Comprehensive Metabolic Panel (04/05/20 13:06) Myoglobin Serum (04/05/20 13:06) Protime With Inr (04/05/20 13:06) Partial Thromboplastin Time (04/05/20 13:06) Monitor-Rhythm Ecg Trace Only (04/05/20 13:06) Lipid Panel (04/06/20 06:00) Aspirin Chewable Tablet (Baby Aspirin Ch (04/05/20 13:15) Ed Iv/Invasive Line Start (04/05/20 13:06) Troponin I Fs (04/05/20 13:06) Probnp Fs (04/05/20 13:06) Medications Given in ED Current Medications Medications Dose Ordered Sig/Rox Route Start Time Stop Time Status Last Admin Dose Admin Aspirin 324 mg ONCE ONCE PO 04/05/20 13:15 04/05/20 13:16 DC 04/05/20 13:29 324 MG Vital Signs/I&O 04/05/20 04/05/20 13:01 13:01 Temp 36.4 Pulse 78 Resp 18 B/P (MAP) 140/72 (94) Pulse Ox 98 O2 Delivery Room Air Room Air Progress Progress Note : Time: 15:22 Progress Note Patient with a negative EKG with unchanged from his previous EKG 07/27/2018. Patient with negative troponin. Patient was also negative EKG and troponin last night at [facility]. [facility] the [place] [facility] Discussed with patient possibility of being transferred to [facility]. Called and discussed with Dr. Cuello. After reviewing patient's information and his 2019 cardiac catheterization, negative troponins over the last approximately 18 hours and no acute EKG changes along with the chest pain being more musculoskeletal and noncardiac in nature. He felt that they would be better served with a follow-up with him next Friday at 1240 on outpatient basis. I discussed with patient's that we could transfer him to [facility] [place] however they would not be doing much further work-up outside of some troponins and then would be seen in a follow-up setting. They agree that it would be better just to see him next Friday. Patient is discharged home in stable condition. He should return to the ER if symptoms significantly worsen. Initial ECG Impression Date: Apr 05, 2020 Initial ECG Impression Time: 13:05 Initial ECG Rate: 80 Initial ECG Rhythm: Normal Sinus Initial ECG Impression: Nonspecific Changes Initial ECG Comparisson: Unchanged (similar to 07/27/18) Comment no acute changes Departure Impression Primary Impression: Chest pain Qualified Codes: R07.9 - Chest pain, unspecified Disposition: 01 HOME, SELF-CARE Condition: Stable Departure-Patient Inst. Referrals: BRANDYN CUELLO MD appt 1240 pm, april 10 NO,LOCAL PHYSICIAN (PCP) Primary Care Physician Patient Instructions: Chest Pain (DC), Pleuritic Chest Pain (DC) Add. Discharge Instructions: Tylenol as needed for pain, 4% topical lidocaine with menthol to affected area Please stop smoking You have an appointment with Dr. Cuello at 1240, April 10 at his cardiology office in [facility] Copy Copies To 1: BRANDYN CUELLO MD, TREVOR L DO Apr 05, 2020 13:06
[2020-04-05] MEDS ORDERED: ASPIRIN 81 MG CHEW (CHILDREN'S ASA) PO ONE (13:15)
[2020-04-05 13:36] LABS: HEMATOCRIT 47 % (40-54); HEMOGLOBIN 15.8 G/DL (13.3-17.7); MEAN CORPUSCULAR HEMOGLOBIN 30 PG (25-34); MEAN CORPUSCULAR HGB CONC 33 G/DL (32-36); MEAN CORPUSCULAR VOLUME 90 FL (80-99); MEAN PLATELET VOLUME 10.5 FL (7.4-10.4); PLATELET COUNT 304 10^3/uL (130-400); WHITE BLOOD COUNT 9.3 10^3/uL (4.3-11.0)
[2020-04-05 13:37] LABS: BASOPHILS # (AUTO) 0.1 10^3/uL (0.0-0.1); BASOPHILS % (AUTO) 1 % (0-10); EOSINOPHILS # (AUTO) 0.1 10^3/uL (0.0-0.3); EOSINOPHILS % (AUTO) 1 % (0-10); LYMPHOCYTES # (AUTO) 2.3 X 10^3 (1.0-4.0); LYMPHOCYTES % (AUTO) 24 % (12-44); MONOCYTES # (AUTO) 0.9 X 10^3 (0.0-1.0); MONOCYTES % (AUTO) 10 % (0-12); NEUTROPHILS # (AUTO) 5.9 X 10^3 (1.8-7.8); NEUTROPHILS % (AUTO) 64 % (42-75)
--- NOTE | 2020-04-05 13:39 | Diagnostic Imaging Report ---
INDICATION: Chest pain. EXAMINATION: Portable AP view of chest is obtained with comparison made to study of 07/27/2018. FINDINGS: Overall heart size and pulmonary vascularity are within normal limits. There is slight increased density in the perihilar regions most pronounced in the lower lobes, bilaterally. There is no evidence of pneumothorax or focal consolidation. No pleural fluid is seen. IMPRESSION: Mild increased density in the perihilar regions could represent edema or pneumonitis. If indicated, follow-up PA and lateral views of the chest may be of use. Dictated by: Dictated on workstation # [id number]
[2020-04-05 14:01] LABS: BUN/CREATININE RATIO 17; CARBON DIOXIDE 25 MMOL/L (21-32); CHLORIDE 104 MMOL/L (98-107); CREATININE SERUM 0.82 MG/DL (0.60-1.30); GFR ESTIMATED > 60; POTASSIUM 4.1 MMOL/L (3.6-5.0); SODIUM 139 MMOL/L (135-145)
[2020-04-05 14:02] LABS: ALANINE AMINOTRANSFERASE 11 U/L (0-55); ALBUMIN 4.6 GM/DL (3.2-4.5); ALKALINE PHOSPHATASE 90 U/L (40-136); BILIRUBIN,TOTAL 0.6 MG/DL (0.1-1.0); CALCIUM 9.1 MG/DL (8.5-10.1); GLUCOSE 127 MG/DL (70-105); MAGNESIUM 1.7 MG/DL (1.6-2.4); TOTAL PROTEIN 7.3 GM/DL (6.4-8.2)
[2020-04-05 15:31] VITALS: BP 111/78
== END 2020-04-05 15:28 | disposition home or self-care (01) ==
LOC: EDUNIT# 13:01 → ER FS 13:04
DX: R07.9 Chest pain, unspecified (principal); I10 Essential (primary) hypertension; K21.9 Gastro-esophageal reflux disease without esophagitis; E78.00 Pure hypercholesterolemia, unspecified; J44.9 Chronic obstructive pulmonary disease, unspecified; Z77.22 Contact with and (suspected) exposure to environmental tobacco smoke (acute) (chronic); Z95.5 Presence of coronary angioplasty implant and graft; Z88.5 Allergy status to narcotic agent; Z88.6 Allergy status to analgesic agent; Z79.82 Long term (current) use of aspirin; Z79.52 Long term (current) use of systemic steroids
CPT/HCPCS: 36415; 71045; 80053; 83735; 83874; 83880; 84484; 85025; 85610; 85730; 93041

== ENCOUNTER 2021-08-16 06:56 | Inpatient (IN) | payer OTHER, MEDICARE ==
[~2021-08-16] VITALS: Ht 177.8 cm; Wt 84.6 kg
[~2021-08-16 06:56] MED LIST changes: +CYCL10TA25 PO; -CYCL10TA9 PO
[2021-08-16 07:09] LABS: BASOPHILS # (AUTO) 0.1 10^3/uL (0.0-0.1); BASOPHILS % (AUTO) 1 % (0-10); EOSINOPHILS # (AUTO) 0.2 10^3/uL (0.0-0.3); EOSINOPHILS % (AUTO) 3 % (0-10); HEMATOCRIT 46 % (40-54); HEMOGLOBIN 15.7 g/dL (13.3-17.7); LYMPHOCYTES # (AUTO) 2.7 10^3/uL (1.0-4.0); LYMPHOCYTES % (AUTO) 32 % (12-44); MEAN CORPUSCULAR HEMOGLOBIN 30 pg (25-34); MEAN CORPUSCULAR HGB CONC 34 g/dL (32-36); MEAN CORPUSCULAR VOLUME 89 fL (80-99); MEAN PLATELET VOLUME 9.7 fL (9.0-12.2); MONOCYTES # (AUTO) 0.8 10^3/uL (0.0-1.0); MONOCYTES % (AUTO) 10 % (0-12); NEUTROPHILS # (AUTO) 4.6 10^3/uL (1.8-7.8); NEUTROPHILS % (AUTO) 54 % (42-75); PLATELET COUNT 274 10^3/uL (130-400); WHITE BLOOD COUNT 8.5 10^3/uL (4.3-11.0)
[2021-08-16] MEDS ORDERED: NITROGLYCERIN 2% OINT 1 GM UNIT DOSE PACKET TOP ONE (07:15)
[2021-08-16] MEDS ORDERED: ASPIRIN 81 MG CHEW (CHILDREN'S ASA) PO ONE (07:15)
[2021-08-16 07:26] LABS: INR 0.9 (0.8-1.4)
[2021-08-16] MEDS ORDERED: PANTOPRAZOLE 40 MG (PROTONIX) VIAL IV STA (07:27)
[2021-08-16] MEDS ORDERED: morphine INJ 10 MG/ML 1ML (SYR OR VIAL) IVP STA ×2 (07:27→08:16)
[2021-08-16] MEDS ORDERED: ONDANSETRON 4 MG/2 ML (SDV) Z0FRAN IVP STA (07:27)
--- NOTE | 2021-08-16 07:30 | Diagnostic Imaging Report ---
CHEST 1 VIEW AP/PA ONLY Indication: Chest pain. Comparison: 04/05/2020 Findings: No focal airspace disease in the visualized lungs. Please note that the posterior lower lobes are poorly evaluated by portable radiography. No pleural effusion or pneumothorax. Normal cardiomediastinal silhouette. Impression: 1. No acute cardiopulmonary process by portable radiography. Dictated by: Dictated on workstation # [id number]
--- NOTE | 2021-08-16 07:34 | ED Chest Pain ---
General Chief Complaint: Chest Pain Stated Complaint: CHEST PAINS Nursing Triage Note: Patient reports he has a history of CAD with 3 stents, states his most recent stent placement was within the last 1-2 years. He reports he has had intermittent chest pain for 1-2 weeks, states the pain started at 0500 this morning. He states he took 2 nitro at home without relief. Source: patient, family (daughter) History of Present Illness Date Seen by Provider: Aug 16, 2021 Time Seen by Provider: 07:00 Initial Comments 71-year-old male presenting with complaints of burning pain in his left chest and lower ribs. He states that this woke him up from sleep this morning around 5 AM. He did try taking 2 sublingual nitroglycerin tablets before coming to the emergency department. He states that that did not make any difference on his pain. He states it feels different than when he has had a heart attack or needed a stent in the past. He has been having pain intermittently over the last 1 to 2 weeks and worse in the last few days. He also smokes over a pack a day of cigarettes. He follows with [facility] [place] and his main VA is through the [facility]. He states he has a pediatrician active practice up there but he i s not sure of the name. They had recently told him he has 75% blockage in one of his arteries but they were treating it medically. Since his pain was not improving or changing he had his daughter bring him to the ED for evaluation. 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) Associated Symptoms: No abdominal pain, No back pain, No diaphoresis, No dizzi ness, No edema, No fatigue, No fever/chills, No headache, No heartburn, No nausea/vomiting, No rash; shortness of breath (chronic and no worse than usual); No swelling/lump in chest, No syncope, No weakness Allergies and Home Medications Allergies Coded Allergies: NSAIDS (Non-Steroidal Anti-Inflamma (Verified Allergy, Severe, shortness of breath, rash, 07/08/18) codeine (Verified Allergy, Severe, swelling, shortness of breath, 07/08/18) Patient Home Medication List Home Medication List Reviewed: Yes Acetaminophen (Tylenol Extra Strength) 500 Mg Tablet, 1,000 MG PO Q4H PRN for PAIN-MILD, (Reported) Entered as Reported by: ANTONI MICHEL on 07/08/18 142 Albuterol Sulfate (Proair Hfa) 1 Puff Puff, 2 PUFF IH Q6H PRN for SHORTNESS OF BREATH, (Reported) Entered as Reported by: ANTONI MICHEL on 07/08/18 142 Ascorbate Calcium (Vitamin C) 500 Mg Tablet, 500 MG PO DAILY, (Reported) Entered as Reported by: ANTONI MICHEL on 07/08/18 142 Aspirin (Aspirin EC) 81 Mg Tablet.dr, 81 MG PO DAILY, (Reported) Entered as Reported by: ARTUR BRADLEY on 07/08/18 110 Atorvastatin Calcium (Atorvastatin Calcium) 80 Mg Tablet, 80 MG PO HS, (R eported) Entered as Reported by: ARTUR BRADLEY on 07/08/18 110 Clopidogrel Bisulfate (Clopidogrel) 75 Mg Tablet, 75 MG PO HS, (Reported) Entered as Reported by: ARTUR BRADLEY on 07/08/18 110 Cyclobenzaprine HCl (Cyclobenzaprine HCl) 10 Mg Tablet, 10 MG PO BID PRN for SPASMS, (Reported) Entered as Reported by: ARTUR BRADLEY on 07/08/18 110 Cyclobenzaprine HCl (Cyclobenzaprine HCl) 10 Mg Tablet, 10 MG PO HS, (Reported) Entered as Reported by: ANTONI MICHEL on 07/08/18 142 Metoprolol Tartrate (Metoprolol Tartrate) 50 Mg Tablet, 25 MG PO BID, (Reported) Entered as Reported by: ARTUR BRADLEY on 07/08/18 110 Mometasone Furoate (Asmanex) 220 Mcg Aer.pow.ba, 1 PUFF IH BID, (Reported) Entered as Reported by: ARTUR BRADLEY on 07/08/18 110 Multivitamin (Multivitamins) 1 Each Tablet, 1 TAB PO DAILY, (Reported) Entered as Reported by: ANTONI MICHEL on 07/08/18 1422 Nitroglycerin (Nitroglycerin) 0.4 Mg Tab.subl, 0.4 MG SL UD PRN for CHEST PAIN, (Reported) Entered as Reported by: ARTUR BRADLEY on 07/08/18 1107 Pantoprazole Sodium (Pantoprazole Sodium) 40 Mg Tablet.dr, 40 MG PO BID, (Reported) Entered as Reported by: ARTUR BRADLEY on 07/08/18 110 Prednisone (Prednisone) 10 Mg Tab.ds.pk, 10 MG PO DAILY Prescribed by: MARIO RAMACHANDRAN on 07/10/18 1023 Review of Systems Review of Systems Constitutional: No chills, No diaphoresis, No fever; malaise EENTM: No Symptoms Reported Respiratory: See HPI Cardiovascular: See HPI Gastrointestinal: Denies Nausea, Denies Vomiting Genitourinary: No Symptoms Reported Musculoskeletal: no symptoms reported Skin: no symptoms reported Psychiatric/Neurological: No Symptoms Reported Endocrine: No Symptoms Reported Hematologic/Lymphatic: Denies Blood Clots Past Ffhfjwz-Yepvcb-Vwbyeh Hx Patient Social History Tobacco Use?: Yes Tobacco type used: Cigarettes Smoking Status: Heavy Tobacco Smoker Substance use?: Yes Substance type: Marijuana Substance frequency: Once in a while Alcohol Use?: No Pt feels they are or have been: No Immunizations Up To Date Tetanus Booster (TDap): Unknown Seasonal Allergies Seasonal Allergies: No Past Medical History Surgery/Hospitalization HX: CAD with stent x 3, Diabetes, asthma/COPD Surgeries: Yes (cyst removal) Cardiac, Coronary Stent Respiratory: Yes (Hx Costochondral chest pain) Chronic Bronchitis, COPD Cardiac: Yes (Hx WPW) Coronary Artery Disease, High Cholesterol, Hypertension Neurological: No Genitourinary: No Gastrointestinal: Yes Gastroesophageal Reflux Musculoskeletal: Yes (back pain r/t pulled muscles) Endocrine: No HEENT: No Cancer: No Psychosocial: No Integumentary: No Blood Disorders: No Physical Exam Vital Signs Vital Signs - First Documented 08/16/21 07:00 Temp 36.4 Pulse 50 Resp 14 B/P (MAP) 135/76 (95) Pulse Ox 95 O2 Delivery Room Air Capillary Refill : Less Than 3 Seconds Height, Weight, BMI Height: 5'10.00" Weight: 214lbs. 0.0oz. [id number]; 26.00 BMI Method:Stated General Appearance: No Apparent Distress, Chronically ill HEENT: Pharynx Normal Neck: Full Range of Motion, Non Tender, Supple Respiratory: No Chest Non Tender (tender to palpation on left upper chest along sternal border); No Accessory Muscle Use, No Respiratory Distress, Decreased Breath Sounds, Wheezing Cardiovascular: Normal Peripheral Pulses, Bradycardia Gastrointestinal: Normal Bowel Sounds, No Pulsatile Mass, Non Tender, Soft Rectal: Deferred Extremity: Normal Capillary Refill, Normal Inspection, No Calf Tenderness, No Pedal Edema Neurologic/Psychiatric: Alert, Oriented x3, 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 Norm as Tested Skin: Normal Color, Warm/Dry Images 1 - tender to palpation on left upper chest wall along sternal border 2 - pain in left anterior lower ribs Progress/Results/Core Measures Results/Orders Lab Results Laboratory Tests Test 08/16/21 07:05 08/16/21 09:00 Range/Units White Blood Count 8.5 4.3-11.0 10^3/uL Red Blood Count 5.18 4.30-5.52 10^6/uL Hemoglobin 15.7 13.3-17.7 g/dL Hematocrit 46 40-54 % Mean Corpuscular Volume 89 80-99 fL Mean Corpuscular Hemoglobin 30 25-34 pg Mean Corpuscular Hemoglobin Concent 34 32-36 g/dL Red Cell Distribution Width 14.6 H 10.0-14.5 % Platelet Count 274 130-400 10^3/uL Mean Platelet Volume 9.7 9.0-12.2 fL Immature Granulocyte % (Auto) 0 % Neutrophils (%) (Auto) 54 42-75 % Lymphocytes (%) (Auto) 32 12-44 % Monocytes (%) (Auto) 10 0-12 % Eosinophils (%) (Auto) 3 0-10 % Basophils (%) (Auto) 1 0-10 % Neutrophils # (Auto) 4.6 1.8-7.8 10^3/uL Lymphocytes # (Auto) 2.7 1.0-4.0 10^3/uL Monocytes # (Auto) 0.8 0.0-1.0 10^3/uL Eosinophils # (Auto) 0.2 0.0-0.3 10^3/uL Basophils # (Auto) 0.1 0.0-0.1 10^3/uL Immature Granulocyte # (Auto) 0.0 0.0-0.1 10^3/uL Prothrombin Time 13.0 12.2-14.7 SEC INR Comment 0.9 0.8-1.4 Activated Partial Thromboplast Time 31 24-35 SEC Sodium Level 143 135-145 MMOL/L Potassium Level 4.0 3.6-5.0 MMOL/L Chloride Level 105 98-107 MMOL/L Carbon Dioxide Level 26 21-32 MMOL/L Anion Gap 12 5-14 MMOL/L Blood Urea Nitrogen 15 7-18 MG/DL Creatinine 0.94 0.60-1.30 MG/DL Estimat Glomerular Filtration Rate 88 BUN/Creatinine Ratio 16 Glucose Level 127 H 70-105 MG/DL Calcium Level 9.1 8.5-10.1 MG/DL Corrected Calcium 8.8 8.5-10.1 MG/DL Magnesium Level 1.9 1.6-2.4 MG/DL Total Bilirubin 0.6 0.1-1.0 MG/DL Aspartate Amino Transf (AST/SGOT) 20 5-34 U/L Alanine Aminotransferase (ALT/SGPT) 20 0-55 U/L Alkaline Phosphatase 78 40-136 U/L Myoglobin 72.0 10.0-92.0 NG/ML Troponin I < 0.30 < 0.30 <0.30 NG/ML Pro-B-Type Natriuretic Peptide 67.2 <75.0 PG/ML Total Protein 7.0 6.4-8.2 GM/DL Albumin 4.4 3.2-4.5 GM/DL My Orders Orders - SIMIN OSORIO MD Morphine Injection (Morphine Injection (08/16/21 07:27) Pantoprazole Injection (Protonix Injecti (08/16/21 07:27) Ondansetron Injection (Zofran Injectio (08/16/21 07:27) Morphine Injection (Morphine Injection (08/16/21 08:16) Troponin I Fs (08/16/21 09:00) Clopidogrel Tablet (Plavix Tablet) (08/16/21 10:31) Enoxaparin Injection (Lovenox Injection) (08/16/21 10:31) Ed Admission (Communication) (08/16/21 10:31) Ekg Tracing (08/16/21 07:21) Medications Given in ED Current Medications Medications Dose Ordered Sig/Rox Route Start Time Stop Time Status Last Admin Dose Admin Aspirin 243 mg ONCE ONCE PO 08/16/21 07:15 08/16/21 07:16 DC 08/16/21 07:15 243 MG Nitroglycerin 1 inch ONCE ONCE TOP 08/16/21 07:15 08/16/21 07:16 DC 08/16/21 07:15 1 INCH Vital Signs/I&O 08/16/21 08/16/21 07:00 11:15 Temp 36.4 Pulse 50 50 Resp 14 16 B/P (MAP) 135/76 (95) 116/61 Pulse Ox 95 95 O2 Delivery Room Air Room Air Blood Pressure Mean: 95 Progress Progress Note #1: Progress Note With patient reporting this feels different than when he has had to have stent placed in the past it is unclear if this is cardiac pain or from some other source. He does report it is a burning pain so we will try a dose of pantoprazole in addition to nitroglycerin paste. Also given 3 additional baby aspirin to get him up to a full adult aspirin dose since he only took one 81 mg aspirin this morning. Evaluate his labs as well as chest x-ray and electrocard iogram. Progress Note #2: Progress Note Initial electrocardiogram does not show any acute ST elevation to indicate a STEMI. The appears similar to March 2020. Despite an inch of nitroglycerin paste as well as the aspirin he was still rating his pain at 9 out of 10. It is partly reproducible with palpation of his chest wall along the left upper sternal border. A repeat electrocardiogram after medication was done at 0721. This again appears similar to the initial tracing and from March 2020. We will add on 2 mg of morphine IV in addition to a dose of Zofran and Protonix. Reviewed prior chart and await labs and chest x-ray. Progress Note #3: Time: 07:49 Progress Note Chest x-ray does not show any acute process and appears similar to prior imaging from March 2020. Labs show stable CBC without elevated white blood cell count or anemia. His chemistry panel is stable without acute significant abnormality other than mild elevation of his glucose to 127. His initial troponin I is less than 0.3. He has a normal proBNP. His coags are normal without acute significant abnormality. Will reassess after his medications and see if his pain is changing. He at least does not have any elevated troponin at this time to indicate acute cardiac injury however with his history of prior stents as well as continuing to smoke and recently being told he has 75% blockage of an artery in his heart he may still warrant cardiology evaluation. Progress Note #4: Time: 08:12 Progress Note Patient reports pain improved to 5 or 6 out of 10, down from 9/10 when he arrive d. Will repeat Morphine 2 mg IV and see if that helps. Repeat Troponin I at 9 am. When reviewed with pt and daughter, his daughter reports the 75% blockage was from about a year ago when he was up in [place]. He was told that if he continued to smoke he would have more problems with his heart. He also reports he is under extra stress from living with his son. He reports that he gets no support from his son and that his son even took the fan from patient''s room and that has made him be overheated, even with the AC running at their home. He plans to move into a trailer that his ex- was going to help him get set up short term until he finds something more permanent. But, this way he would at least be away from his son and the extra stress of that. Progress Note #5: Time: 09:49 Progress Note Repeat Troponin is still negative for acute heart damage. Will call [facility] to check about possible transfer for stress test or cardiac evaluation since he had reported 75% blockage in coronary artery within the last year. Progress Note #6: Time: 10:16 Progress Note I spoke with the transfer nurse MOJGAN Gandhi, at the [facility] and she advised me that they did not have any beds currently and in addition, if the patient needed a cardiac catheterization, their Receipt And Report Clerk was down until August 28. [address] Jane, human resources compensation analyst pediatrician active practice for [facility]. Will check about admit for stress test and possible cardiac cath for his chest pains. [address] Jane and he recommended 300 mg loading dose of Plavix as well as Lovenox 1 mg/kg subcu. Admit to the hospitalist service and he will see in consult. [address] Wiggins on-call for the hospitalist service. He stated he would place queued orders and have the patient go to cardiac stepdown bed. Initial ECG Impression Date: Aug 16, 2021 Initial ECG Impression Time: 07:00 Initial ECG Rate: 49 Initial ECG Rhythm: S.Hernandez Initial ECG Comparisson: Unchanged Comment Sinus bradycardia with heart rate [address] interval 168 ms. QT interval 447 ms with a QTc interval [address] elevation. Left atrial enlargement. Overall appears similar to prior tracing from March 2020 EKG : EKG Time: 07: Rate: 49 Rhythm: S.Hernandez ECG Comparisson: Unchanged Comment Sinus bradycardia with a heart rate of [address] interval 151 ms. Left anterior fascicular block and an incomplete right bundle branch block. No acute ST elevation. QT interval 451 ms with a QTc interval 420 ms. Overall appears similar to prior tracing from 7 AM as well as from March 2020. Diagnostic Imaging Diagonstic Imaging: Xray Plain Films/CT/US/NM/MRI: chest Comments NAME: MAXIMO CRUZ MED REC#: [id number] PT STATUS: REG ER : 1950 PHYSICIAN: HEATHER HERNANDEZ MD ADMIT DATE: 08/16/21/ER FS Signed Date of Exam:08/16/21 CHEST 1 VIEW AP/PA ONLY CHEST 1 VIEW AP/PA ONLY Indication: Chest pain. Comparison: 04/05/2020 Findings: No focal airspace disease in the visualized lungs. Please note that the posterior lower lobes are poorly evaluated by portable radiography. No pleural effusion or pneumothorax. Normal cardiomediastinal silhouette. Impression: 1. No acute cardiopulmonary process by portable radiography. Dictated by: Dictated on workstation # [id number] Dict: 08/16/21727 Trans: 08/16/21728 [facility] [id number] Interpreted by: DORCAS ARAYA MD Electronically signed by: DORCAS ARAYA MD 08/16/21728 Reviewed: Reviewed by Me Departure Communication (Admissions) Time/Spoke to Admitting Phy: 10:26 d/w Dr. Wiggins and he accepted pt to Cardiac StepDown Unit with Dr. Jane as oracle fusion consultant. Time/Spoke to Consulting Phy: 10:21 d/w Dr. Jane as human resources compensation analyst pediatrician active practice for consult on patient being admitted to Hospitalist since [facility] has no beds and their Receipt And Report Clerk was down until August 28. Impression Primary Impression: Coronary artery disease with unstable angina pectoris Qualified Codes: I25.110 - Atherosclerotic heart disease of [place] coronary artery with unstable angina pectoris Additional Impressions: Burning chest pain History of coronary artery disease Disposition: 30 STILL A PATIENT Condition: Stable Admissions Decision to Admit Reason: Admit from ER (General) Decision to Admit/Date: Aug 16, 2021 Time/Decision to Admit Time: 10:26 Departure-Patient Inst. Referrals: ANGEL ANSARI MD (PCP/Family) Primary Care Physician SIMIN OSORIO MD Aug 16, 2021 07:34
[2021-08-16 07:42] LABS: BILIRUBIN,TOTAL 0.6 MG/DL (0.1-1.0); CALCIUM 9.1 MG/DL (8.5-10.1); CREATININE SERUM 0.94 MG/DL (0.60-1.30); MAGNESIUM 1.9 MG/DL (1.6-2.4)
[2021-08-16 07:43] LABS: ALBUMIN 4.4 GM/DL (3.2-4.5)
[2021-08-16] MEDS ORDERED: ENOXAPARIN 80 MG/0.8 ML (LOVENOX) SYR SC STA (10:31)
[2021-08-16] MEDS ORDERED: CLOPIDOGREL 300 MG (PLAVIX) TABLET PO STA (10:31)
[2021-08-16 12:15] VITALS: BP 123/77
[2021-08-16] MEDS ORDERED: MELATONIN 3 MG TABLET PO PRN (12:15)
[2021-08-16] MEDS ORDERED: ONDANSETRON 4 MG (ZOFRAN) ORAL DISSOLVE TAB PO PRN (12:15)
[2021-08-16] MEDS ORDERED: ONDANSETRON 4 MG/2 ML (SDV) Z0FRAN IV PRN (12:15)
[2021-08-16] MEDS ORDERED: diphenhydrAMINE 25 MG TAB (BENADRYL) PO PRN (12:15)
[2021-08-16] MEDS ORDERED: ENOXAPARIN 100 MG/1 ML (LOVENOX) SYR SC SCH (12:15)
[2021-08-16] MEDS ORDERED: ANTACID SUSP 30 ML UDC (MYLANTA) PO PRN (12:15)
[2021-08-16] MEDS ORDERED: ACETAMINOPHEN 325 MG TABLET PO PRN (12:15)
[2021-08-16] MEDS ORDERED: FERR324T4 PO (12:29)
[2021-08-16] MEDS ORDERED: AMLO-251 PO (12:29)
[2021-08-16] MEDS ORDERED: TERB15CR6 TP (12:29)
[2021-08-16] MEDS ORDERED: METO100T12 PO (12:29)
[2021-08-16] MEDS ORDERED: METF-397 PO (12:29)
[2021-08-16] MEDS ORDERED: NICOTINE 14 MG (NICODERM) PATCH TD PRN (12:45)
[2021-08-16 13:00] VITALS: BP 120/73
--- NOTE | 2021-08-16 13:38 | Consultation-Cardiology ---
HPI-Cardiology Cardiology Consultation: Date of Consultation 08/16/21 Time Seen by a Provider: 13:30 Date of Admission 08-16-21 Attending Physician Cher Roman MD Admitting Physician Admitting Physician: Tali Wiggisn MD Attending Physician: Tali Wiggins MD Consulting Physician Jacob Jane MD HPI: Chief Complaint: Chest pain Mr. Cruz is a 71 yr old male admitted to ICU 11 from the [facility] ED with c/o CP. He reports he has had chest discomfort which he describes as a burning sensation with a pins and needles sensation for approx the last 2 weeks. He reports the symptoms come on with any strenuous exertions and are relieved with rest; lasting 10-15 minutes. He reports mild to mod SOB. He reports lightheadedness with the discomfort. He reports in the ED his pain was a 9/10 and after nitro, morphine IV, and asa it is down to a 3/10. No c/o n/v/d. No c/o syncope or near syncope. No c/o LE swelling. He continues to smoke cigs, up to 1 PPD. [facility] in approx a year. Review of Systems-Cardiology Review of Systems Constitutional: No chills, No fever; lightheadedness Eyes: No vision change Ears/Nose/Throat: No epistaxis, No recent hearing loss Respiratory: As described under HPI Cardiovascular: As described under HPI Gastrointestinal: No constipation, No diarrhea, No nausea, No vomiting Genitourinary: No dysuria, No hematuria Musculoskeletal: no symptoms reported Skin: No rash, No ulcerations, No rash on exposed areas Psychiatric/Neurological: No anxiety, No depression, No seizure, No focal weakness, No syncope Hematologic: No bleeding abnormalities RFR-Zyphik-Rjyvpx Hx Patient Social History Smoking Status: Heavy Tobacco Smoker 2nd Hand Smoke Exposure: Yes Have you traveled recently?: No Alcohol Use?: No Substance type: Marijuana Pt feels they are or have been: No Tobacco type used: Cigarettes Immunizations Up To Date Tetanus Booster (TDap): Unknown Date of Pneumonia Vaccine: Nov 10, 2017 Date of Influenza Vaccine: Nov 10, 2017 Past Medical History PMH As described under Assessment. Family Medical History Family Medical History: He reports no known family h/o CAD. Allergies and Home Medications Allergies Coded Allergies: NSAIDS (Non-Steroidal Anti-Inflamma (Verified Allergy, Severe, shortness of breath, rash, 07/08/18) codeine (Verified Allergy, Severe, swelling, shortness of breath, 07/08/18) Patient Home Medication List Acetaminophen (Tylenol Extra Strength) 500 Mg Tablet, 1,000 MG PO Q4H PRN for PAIN-MILD, (Reported) Entered as Reported by: ANTONI MICHEL on 07/08/181421 Last Action: Reviewed Albuterol Sulfate (Proair Hfa) 1 Puff Puff, 2 PUFF IH Q6H PRN for SHORTNESS OF BREATH, (Reported) Entered as Reported by: ANTONI MICHEL on 07/08/18 142 Last Action: Reviewed Amlodipine Besylate (Amlodipine Besylate) 10 Mg Tablet, 10 MG PO DAILY, (Reported) Entered as Reported by: PONCHO CONSTANTINO on 08/16/211228 Last Action: Reviewed Ascorbate Calcium (Vitamin C) 500 Mg Tablet, 500 MG PO DAILY, (Reported) Entered as Reported by: ANTONI MICHEL on 07/08/181421 Last Action: Reviewed Aspirin (Aspirin EC) 81 Mg Tablet.dr, 81 MG PO DAILY, (Reported) Entered as Reported by: ARTUR BRADLEY on 07/08/18 110 Last Action: Reviewed Atorvastatin Calcium (Atorvastatin Calcium) 80 Mg Tablet, 80 MG PO HS, (Reported) Entered as Reported by: ARTUR BRADLEY on 07/08/181106 Last Action: Reviewed Ferrous Sulfate (Ferrous Sulfate) 324 Mg (65 Mg Iron) Tablet.dr, 324 MG PO DAILY, (Reported) Entered as Reported by: PONCHO CONSTANTINO on 08/16/211228 Last Action: Reviewed Metformin HCl (Metformin HCl) 500 Mg Tablet, 500 MG PO BID, (Reported) Entered as Reported by: PONCHO CONSTANTINO on 08/16/211228 Last Action: Reviewed Metoprolol Tartrate (Metoprolol Tartrate) 100 Mg Tablet, 50 MG PO BID, (Reported) Entered as Reported by: PONCHO CONSTANTINO on 08/16/211228 Last Action: Reviewed Mometasone Furoate (Asmanex) 220 Mcg Aer.pow.ba, 1 PUFF IH BID, (Reported) Entered as Reported by: ARTUR BRADLEY on 07/08/181106 Last Action: Reviewed Multivitamin (Multivitamins) 1 Each Tablet, 1 TAB PO DAILY, (Reported) Entered as Reported by: ANTONI MICHEL on 07/08/18 142 Last Action: Reviewed Nitroglycerin (Nitroglycerin) 0.4 Mg Tab.subl, 0.4 MG SL UD PRN for CHEST PAIN, (Reported) Entered as Reported by: ARTUR BRADLEY on 07/08/181106 Last Action: Reviewed Pantoprazole Sodium (Pantoprazole Sodium) 40 Mg Tablet.dr, 40 MG PO BID, (Reported) Entered as Reported by: ARTUR BRADLEY on 07/08/181106 Last Action: Reviewed Terbinafine HCl (Terbinafine) 1 % Cream..g., 15 GM TP BID, (Reported) Entered as Reported by: PONCHO CONSTANTINO on 08/16/21 1229 Last Action: Reviewed Discontinued Medications Clopidogrel Bisulfate (Clopidogrel) 75 Mg Tablet, 75 MG PO HS, (Reported) Discontinued Reason: No Longer Taking Entered as Reported by: ARTUR BRADLEY on 07/08/181106 Last Action: Discontinued Cyclobenzaprine HCl (Cyclobenzaprine HCl) 10 Mg Tablet, 10 MG PO BID PRN for SPASMS, (Reported) Discontinued Reason: No Longer Taking Entered as Reported by: ARTUR BRADLEY on 07/08/181106 Last Action: Discontinued Cyclobenzaprine HCl (Cyclobenzaprine HCl) 10 Mg Tablet, 10 MG PO HS, (Reported) Discontinued Reason: No Longer Taking Entered as Reported by: ANTONI MICHEL on 07/08/18 1421 Last Action: Discontinued Metoprolol Tartrate (Metoprolol Tartrate) 50 Mg Tablet, 25 MG PO BID, (Reported) Discontinued Reason: Provider Change Entered as Reported by: ARTUR BRADLEY on 07/08/181106 Last Action: Discontinued Prednisone (Prednisone) 10 Mg Tab.ds.pk, 10 MG PO DAILY Discontinued Reason: No Longer Taking Prescribed by: MARIO RAMACHANDRAN on 07/10/18 1023 Last Action: Discontinued Physical Exam-Cardiology Physical Exam Vital Signs/I&O 08/16/21 08/16/21 08/16/21 08/16/21 07:00 11:15 12:09 12:15 Temp 36.4 Pulse 50 50 53 49 Resp 14 16 B/P (MAP) 135/76 (95) 116/61 123/77 (92) Pulse Ox 95 95 95 O2 Delivery Room Air Room Air Room Air 08/16/21 08/16/21 08/16/21 13:00 14:00 14:31 Temp 36.4 Pulse 48 51 51 Resp 20 18 B/P (MAP) 120/73 (89) 113/71 (85) Pulse Ox 91 93 93 O2 Delivery Room Air Room Air Capillary Refill : Less Than 3 Seconds Constitutional: AAO x 3, well-developed, well-nourished HEENT: PERRL, hearing is well preserved; No hard of hearing Neck: No carotid bruit; carotid pulses are 2 + bilaterally Respiratory: No accessory muscle use, No respiratory distress; chest expansion is symmetric, chest is bilaterally symmetric, rhonchi (scattered) Cardiovascular: regular rate-rhythm; No JVD; S1 and S2 Gastrointestinal: No tender; soft, round, audible bowel sounds Extremities: no lower extremity edema bilateral Neurologic/Psychiatric: grossly intact (moves all extremities) Skin: No rash on exposed areas, No ulcerations on exposed areas Data Review Labs Laboratory Tests 08/16/21 07:05: White Blood Count 8.5, Red Blood Count 5.18, Hemoglobin 15.7, Hematocrit 46, Mean Corpuscular Volume 89, Mean Corpuscular Hemoglobin 30, Mean Corpuscular Hemoglobin Concent 34, Red Cell Distribution Width 14.6H, Platelet Count 274, Mean Platelet Volume 9.7, Immature Granulocyte % (Auto) 0, Neutrophils (%) (Auto) 54, Lymphocytes (%) (Auto) 32, Monocytes (%) (Auto) 10, Eosinophils (%) (Auto) 3, Basophils (%) (Auto) 1, Neutrophils # (Auto) 4.6, Lymphocytes # (Auto) 2.7, Monocytes # (Auto) 0.8, Eosinophils # (Auto) 0.2, Basophils # (Auto) 0.1, Immature Granulocyte # (Auto) 0.0, Prothrombin Time 13.0, INR Comment 0.9, Activated Partial Thromboplast Time 31, Sodium Level 143, Potassium Level 4.0, Chloride Level 105, Carbon Dioxide Level 26, Anion Gap 12, Blood Urea Nitrogen 15, Creatinine 0.94, Estimat Glomerular Filtration Rate 88, BUN/Creatinine Ratio 16, Glucose Level 127H, Calcium Level 9.1, Corrected Calcium 8.8, Magnesium Level 1.9, Total Bilirubin 0.6, Aspartate Amino Transf (AST/SGOT) 20, Alanine Aminotransferase (ALT/SGPT) 20, Alkaline Phosphatase 78, Myoglobin 72.0, Troponin I < 0.30, Pro-B-Type Natriuretic Peptide 67.2, Total Protein 7.0, Albumin 4.4 08/16/21 09:00: Troponin I < 0.30 08/16/21 12:49: Troponin I < 0.028 Radiology NAME: MAXIMO CRUZ MED REC#: [id number] PT STATUS: REG ER : 1950 PHYSICIAN: HEATHER HERNANDEZ MD ADMIT DATE: 08/16/21/ER FS Signed Date of Exam:08/16/21 CHEST 1 VIEW AP/PA ONLY CHEST 1 VIEW AP/PA ONLY Indication: Chest pain. Comparison: 04/05/2020 Findings: No focal airspace disease in the visualized lungs. Please note that the posterior lower lobes are poorly evaluated by portable radiography. No pleural effusion or pneumothorax. Normal cardiomediastinal silhouette. Impression: 1. No acute cardiopulmonary process by portable radiography. Dictated by: Dictated on workstation # [id number] Dict: 08/16/21727 Trans: 08/16/21728 [facility] [id number] Interpreted by: DORCAS ARAYA MD Electronically signed by: DORCAS ARAYA MD 08/16/21728 ECG Impression ECG Initial ECG Rhythm: Normal Sinus A/P-Cardiology Assessment/Admission Diagnosis Chest pain - with some features suggestive of angina CAD - H/O Resolute Onyxx 2.75 x 12 and 2.5 x 12 stents to the Ramus on 09-01-[address] Retana at the [facility] (according to stent card) - Reports h/o stent approx 2 yrs ago at [place] - details unknown HTN HLD Tobaccoim - 1 PPD - cessation advised DM 2 Probable COPD Discussion and Recomendations Chest pain with some features of angina - based on his symptoms, h/o and risk factors advise cardiac cath. We have discussed the procedure, risks, benefits and potential complications of cardiac cath with possible PCI. He is agreeable Sinus bradycardia - no suitable for BB, albeit asymptomatic Echocardiogram to eval structure and function Continue ASA Add Plavix Continue statin Monitor lab Replace electrolytes as indicated Request records from [facility] Further recs will be based on his hospital course We would like to thank medical services for this consult Clinical Quality Measures AMI/AHF: ASA po Prior to arrival: Yes (81 mg) [facility] Aug 16, 2021 13:38
[2021-08-16 14:00] VITALS: BP 113/71
[2021-08-16 14:31] VITALS: BP 113/71
[2021-08-16] MEDS ORDERED: RT-ALBUTEROL/IPRATROPIUM 3 ML (DUONEB) VIAL INH PRN (14:45)
[2021-08-16 16:00] VITALS: BP 123/76
--- NOTE | 2021-08-16 18:03 | Tele-ICU Progress Note ---
Progress Note Video assessment done , Hemodynamically stable 71 y/o male admitted in ED c/o of chest pain -CAD with unstable angina - seen by card , possible PCI - plavix , lovenox 80 bid DM - ISS NO TELE-ICU CONSULT REQUESTED CONTINUE TO MONITOR PER USUAL TELE-ICU PROTOCOL No need for Tele-ICU interventions Plans as delineated by bedside physicians / consultants Focused Exam Height, Weight, BMI Height: 5'10.00" Weight: 214lbs. 0.0oz. 97.749691ib; 26.00 BMI Method:Stated AMANDA PHELPS MD Aug 16, 2021 18:03
--- NOTE | 2021-08-16 18:32 | History & Physical-Hospitalist ---
History of Present Illness HPI/Chief Complaint Leopoldo Valente is a 71 year old male with PMH HTN, T2DM, HLD, CAD, who presented with chest pain. He was awoken from sleep this morning due to pain. He reports burning pain with radiation to the left ribs. He also had radiation to the left arm. He denies diaphoresis. He denies nausea and vomiting. He did have some shortness of breath. He denies fevers and chills. He denies cough. He denies abdominal pain. He reportedly had been told about a blocked artery that [facility] and their labor and delivery nurse was unavailable. Source: patient Exam Limitations: no limitations Date Seen 08/16/21 Time Seen by a Provider: 12:30 Attending Physician Cher Roman MD PCP Admitting Physician: Tali Capone MD Attending Physician: Tali Capone MD Referring Physician Date of Admission Aug 16, 2021 at 11:56 Home Medications & Allergies Home Medications Reviewed patient Home Medication Reconciliation performed by pharmacy medication reconciliations semiconductor equipment technician and/or nursing. Patients Allergies have been reviewed. Allergies Allergies Coded Allergies NSAIDS (Non-Steroidal Anti-Inflamma (Verified Allergy, Severe, shortness of breath, rash, 07/08/18) codeine (Verified Allergy, Severe, swelling, shortness of breath, 07/08/18) Past Ycqjezb-Jzmeni-Lntvzg Hx Patient Social History Tobacco Use?: Yes Tobacco type used: Cigarettes Smoking Status: Heavy Tobacco Smoker Substance use?: Yes Substance type: Marijuana Substance frequency: Once in a while Alcohol Use?: No Pt feels they are or have been: No Immunizations Up To Date Date of Influenza Vaccine: Nov 10, 2017 Date of Pneumonia Vaccine: Nov 10, 2017 Seasonal Allergies Seasonal Allergies: No Current Status Advance Directives: No Communicates: Verbally Primary Language: Citizen [place] Preferred Spoken Language: Citizen [place] Past Medical History Surgeries: Cardiac, Coronary Stent Chronic Bronchitis, COPD Coronary Artery Disease, High Cholesterol, Hypertension Gastroesophageal Reflux Blood Disorders: No Family Medical History No Pertinent Family Hx Review of Systems Constitutional: no symptoms reported EENTM: no symptoms reported Respiratory: short of breath Cardiovascular: chest pain Gastrointestinal: no symptoms reported Genitourinary: no symptoms reported Musculoskeletal: no symptoms reported Physical Exam Physical Exam Vital Signs Vital Signs - First Documented 08/16/21 07:00 Temp 36.4 Pulse 50 Resp 14 B/P (MAP) 135/76 (95) Pulse Ox 95 O2 Delivery Room Air Capillary Refill : Less Than 3 Seconds Height, Weight, BMI Height: 5'10.00" Weight: 214lbs. 0.0oz. 97.059399kx; 26.00 BMI Method:Stated General Appearance: No Apparent Distress, WD/WN HEENT: PERRL/EOMI, Pharynx Normal Neck: Normal Inspection, Supple Respiratory: Lungs Clear, Normal Breath Sounds, No Respiratory Distress Cardiovascular: Regular Rate, Rhythm, No Edema, No Murmur Gastrointestinal: Normal Bowel Sounds, Non Tender, Soft Extremity: Normal Inspection, Non Tender, No Pedal Edema Neurologic/Psychiatric: Alert, Normal Mood/Affect Skin: Normal Color, Warm/Dry Results Results/Procedures Labs Laboratory Tests 08/16/21 07:05 Patient resulted labs reviewed. Imaging: Reviewed Imaging Report Assessment/Plan Admission Diagnosis Unstable angina Admission Status: Inpatient Order (span 2 midnights) Reason for Inpatient Admission: Cardioogy evaluation Assessment and Plan CAD with unstable angina HTN HLD Current smoker Troponin negative EKG unremarkable Cardiology consulted Planning for left heart cath Lovenox Aspirin Plavix Lipitor Metoprolol Nicotine patch as needed T2DM Sliding scale insulin Diagnosis/Problems Diagnosis/Problems (1) Coronary artery disease with unstable angina pectoris Status: Acute Qualifiers: Coronary Disease-Associated Artery/Lesion type: unspecified vessel or lesion type [place] vs. transplanted heart: tor[place]inez heart Qualified Codes: I25.110 - Atherosclerotic heart disease of [place] coronary artery with unstable angina pectoris Clinical Quality Measures AMI/AHF: ASA po Prior to arrival: Yes (81 mg) TALI CAPONE MD Aug 16, 2021 18:32
--- NOTE | 2021-08-16 19:16 | Consultation-Cardiology ---
HPI-Cardiology Cardiology Consultation: Date of Consultation 08/16/21 Time Seen by a Provider: 19:00 Date of Admission Attending Physician Cher Roman MD Admitting Physician Admitting Physician: Tali Wiggins MD Attending Physician: Tali Wiggins MD Consulting Physician ZORAN PRITCHARD MD, MA, FACP, FACC, FSCAI, CCDS HPI: Chief Complaint: Chest pain Mr. Valente is a 71 yr old male admitted to ICU 11 from the [facility] ED with c/o CP. He reports he has had chest discomfort which he describes as a burning sensation with a pins and needles sensation for approx the last 2 weeks. He reports the symptoms come on with any strenuous exertions and are relieved with rest; lasting 10-15 minutes. He reports mild to mod SOB. He reports lightheadedness with the discomfort. He reports in the ED his pain was a 9/10 and after nitro, morphine IV, and asa it is down to a 3/10. No c/o n/v/d. No c/o syncope or near syncope. No c/o LE swelling. He continues to smoke cigs, up to 1 PPD. [facility] but [facility] not seen cardiology there in approx a year. Review of Systems-Cardiology Review of Systems Constitutional: No chills, No fever; lightheadedness Eyes: No vision change Ears/Nose/Throat: No epistaxis, No recent hearing loss Respiratory: As described under HPI Cardiovascular: As described under HPI Gastrointestinal: No constipation, No diarrhea, No nausea, No vomiting Genitourinary: No dysuria, No hematuria Musculoskeletal: no symptoms reported Skin: No rash, No ulcerations, No rash on exposed areas Psychiatric/Neurological: No anxiety, No depression, No seizure, No focal w eakness, No syncope Hematologic: No bleeding abnormalities [id number] Hx Patient Social History Smoking Status: Current Everyday Smoker 2nd Hand Smoke Exposure: Yes Have you traveled recently?: No Alcohol Use?: No Substance type: Marijuana Pt feels they are or have been: No Tobacco type used: Cigarettes Immunizations Up To Date Tetanus Booster (TDap): Unknown Date of Pneumonia Vaccine: Nov 10, 2017 Date of Influenza Vaccine: Nov 10, 2017 Past Medical History PMH As described under Assessment. Family Medical History Family Medical History: He reports no known family h/o CAD. Allergies and Home Medications Allergies Coded Allergies: NSAIDS (Non-Steroidal Anti-Inflamma (Verified Allergy, Severe, shortness of breath, rash, 07/08/18) codeine (Verified Allergy, Severe, swelling, shortness of breath, 07/08/18) Patient Home Medication List Home Medication List Reviewed: Yes Acetaminophen (Tylenol Extra Strength) 500 Mg Tablet, 1,000 MG PO Q4H PRN for PAIN-MILD, (Reported) Entered as Reported by: ANTONI MICHEL on 07/08/181421 Last Action: Reviewed Albuterol Sulfate (Proair Hfa) 1 Puff Puff, 2 PUFF IH Q6H PRN for SHORTNESS OF BREATH, (Reported) Entered as Reported by: ANTONI MICHEL on 07/08/181420 Last Action: Reviewed Amlodipine Besylate (Amlodipine Besylate) 10 Mg Tablet, 10 MG PO DAILY, (Reported) Entered as Reported by: PONCHO CONSTANTINO on 08/16/211228 Last Action: Reviewed Ascorbate Calcium (Vitamin C) 500 Mg Tablet, 500 MG PO DAILY, (Reported) Entered as Reported by: ANTONI MICHEL on 07/08/181421 Last Action: Reviewed Aspirin (Aspirin EC) 81 Mg Tablet.dr, 81 MG PO DAILY, (Reported) Entered as Reported by: ARTUR BRADLEY on 07/08/181106 Last Action: Reviewed Atorvastatin Calcium (Atorvastatin Calcium) 80 Mg Tablet, 80 MG PO HS, (Reported) Entered as Reported by: ARTUR BRADLEY on 07/08/181106 Last Action: Reviewed Ferrous Sulfate (Ferrous Sulfate) 324 Mg (65 Mg Iron) Tablet.dr, 324 MG PO DAILY, (Reported) Entered as Reported by: PONCHO CONSTANTINO on 08/16/211228 Last Action: Reviewed Metformin HCl (Metformin HCl) 500 Mg Tablet, 500 MG PO BID, (Reported) Entered as Reported by: PONCHO CONSTANTINO on 08/16/211228 Last Action: Reviewed Metoprolol Tartrate (Metoprolol Tartrate) 100 Mg Tablet, 50 MG PO BID, (Reported) Entered as Reported by: PONCHO CONSTANTINO on 08/16/211228 Last Action: Reviewed Mometasone Furoate (Asmanex) 220 Mcg Aer.pow.ba, 1 PUFF IH BID, (Reported) Entered as Reported by: ARTUR BRADLEY on 07/08/181106 Last Action: Reviewed Multivitamin (Multivitamins) 1 Each Tablet, 1 TAB PO DAILY, (Reported) Entered as Reported by: ANTONI MICHEL on 07/08/181421 Last Action: Reviewed Nitroglycerin (Nitroglycerin) 0.4 Mg Tab.subl, 0.4 MG SL UD PRN for CHEST PAIN, (Reported) Entered as Reported by: ARTUR BRADLEY on 07/08/181106 Last Action: Reviewed Pantoprazole Sodium (Pantoprazole Sodium) 40 Mg Tablet.dr, 40 MG PO BID, (Reported) Entered as Reported by: ARTUR BRADLEY on 07/08/181106 Last Action: Reviewed Terbinafine HCl (Terbinafine) 1 % Cream..g., 15 GM TP BID, (Reported) Entered as Reported by: PONCHO CONSTANTINO on 08/16/21 1229 Last Action: Reviewed Discontinued Medications Clopidogrel Bisulfate (Clopidogrel) 75 Mg Tablet, 75 MG PO HS, (Reported) Discontinued Reason: No Longer Taking Entered as Reported by: ARTUR BRADLYE on 07/08/181106 Last Action: Discontinued Cyclobenzaprine HCl (Cyclobenzaprine HCl) 10 Mg Tablet, 10 MG PO BID PRN for SPASMS, (Reported) Discontinued Reason: No Longer Taking Entered as Reported by: ARTUR BRADLEY on 07/08/181106 Last Action: Discontinued Cyclobenzaprine HCl (Cyclobenzaprine HCl) 10 Mg Tablet, 10 MG PO HS, (Reported) Discontinued Reason: No Longer Taking Entered as Reported by: ANTONI MICHEL on 07/08/181420 Last Action: Discontinued Metoprolol Tartrate (Metoprolol Tartrate) 50 Mg Tablet, 25 MG PO BID, (Reported) Discontinued Reason: Provider Change Entered as Reported by: ARTUR BRADLEY on 07/08/181106 Last Action: Discontinued Prednisone (Prednisone) 10 Mg Tab.ds.pk, 10 MG PO DAILY Discontinued Reason: No Longer Taking Prescribed by: MARIO RAMACHANDRAN on 07/10/18 1023 Last Action: Discontinued Physical Exam-Cardiology Physical Exam Vital Signs/I&O 08/16/21 08/16/21 08/16/2122 11:15 12:09 12:15 12:15 Pulse 50 53 49 Resp 16 B/P (MAP) 116/61 123/77 (92) Pulse Ox 95 95 95 O2 Delivery Room Air Room Air Room Air 08/16/21 08/16/21 08/16/21 08/16/21 13:00 14:00 14:31 16:00 Temp 36.4 Pulse 48 51 51 Resp 20 18 B/P (MAP) 120/73 (89) 113/71 (85) Pulse Ox 91 93 93 95 O2 Delivery Room Air Room Air Room Air 08/16/21 08/16/21 16:00 16:00 Temp 36.6 Pulse 48 Resp 18 B/P (MAP) 123/76 (92) Pulse Ox 95 O2 Delivery Room Air Capillary Refill : Less Than 3 Seconds Constitutional: AAO x 3, well-developed, well-nourished HEENT: PERRL, hearing is well preserved; No hard of hearing Neck: No carotid bruit; carotid pulses are 2 + bilaterally Respiratory: No accessory muscle use, No respiratory distress; chest expansion is symmetric, chest is bilaterally symmetric, rhonchi (scattered) Cardiovascular: regular rate-rhythm; No JVD; S1 and S2 Gastrointestinal: No tender; soft, round, audible bowel sounds Extremities: no lower extremity edema bilateral Neurologic/Psychiatric: grossly intact (moves all extremities) Skin: No rash on exposed areas, No ulcerations on exposed areas Data Review Labs Laboratory Tests 08/16/21 07:05: White Blood Count 8.5, Red Blood Count 5.18, Hemoglobin 15.7, Hematocrit 46, Mean Corpuscular Volume 89, Mean Corpuscular Hemoglobin 30, Mean Corpuscular Hemoglobin Concent 34, Red Cell Distribution Width 14.6H, Platelet Count 274, Mean Platelet Volume 9.7, Immature Granulocyte % (Auto) 0, Neutrophils (%) (Auto) 54, Lymphocytes (%) (Auto) 32, Monocytes (%) (Auto) 10, Eosinophils (%) ( Auto) 3, Basophils (%) (Auto) 1, Neutrophils # (Auto) 4.6, Lymphocytes # (Auto) 2.7, Monocytes # (Auto) 0.8, Eosinophils # (Auto) 0.2, Basophils # (Auto) 0.1, Immature Granulocyte # (Auto) 0.0, Prothrombin Time 13.0, INR Comment 0.9, Activated Partial Thromboplast Time 31, Sodium Level 143, Potassium Level 4.0, Chloride Level 105, Carbon Dioxide Level 26, Anion Gap 12, Blood Urea Nitrogen 15, Creatinine 0.94, Estimat Glomerular Filtration Rate 88, BUN/Creatinine Ratio 16, Glucose Level 127H, Calcium Level 9.1, Corrected Calcium 8.8, Magnesium Level 1.9, Total Bilirubin 0.6, Aspartate Amino Transf (AST/SGOT) 20, Alanine Aminotransferase (ALT/SGPT) 20, Alkaline Phosphatase 78, Myoglobin 72.0, Troponin I < 0.30, Pro-B-Type Natriuretic Peptide 67.2, Total Protein 7.0, Albumin 4.4 08/16/21 09:00: Troponin I < 0.30 08/16/21 12:49: Troponin I < 0.028 A/P-Cardiology Assessment/Admission Diagnosis Chest pain - with some features suggestive of angina CAD - H/O Resolute Onyxx 2.75 x 12 and 2.5 x 12 stents to the Ramus on 09-01-[address] Retana at the [facility] (according to stent card) - Reports h/o stent approx 2 yrs ago at [place] - details unknown HTN HLD Tobaccoim - 1 PPD - cessation advised DM 2 Probable COPD Discussion and Recomendations Chest pain with some features of angina - based on his symptoms, h/o and risk factors advise cardiac cath. We have discussed the procedure, risks, benefits and potential complications of cardiac cath with possible PCI. He is agreeable Sinus bradycardia - no suitable for BB, albeit asymptomatic Echocardiogram to eval structure and function Continue ASA Add Plavix Continue statin Monitor lab Replace electrolytes as indicated Request records from [place] and [facility] Further recs will be based on his hospital course We would like to thank medical services for this consult Clinical Quality Measures AMI/AHF: ASA po Prior to arrival: Yes (81 mg) ZORAN PRITCHARD MD FACP FAC CCDS Aug 16, 2021 19:16
[2021-08-16 20:00] VITALS: BP 115/88
[2021-08-16] MEDS ORDERED: meTOprolol TARTRATE 25 MG (LOPRESSOR) TABLET PO SCH (21:00)
[2021-08-16] MEDS: PANTOPRAZOLE 40 MG (PROTONIX) VIAL IV SCH (21:15)
[2021-08-16] MEDS: ENOXAPARIN 80 MG/0.8 ML (LOVENOX) SYR SC SCH (22:30)
[2021-08-17] VITALS (7 sets, daily range): BP systolic 98–151; BP diastolic 63–87
[2021-08-17] MEDS: RT-ALBUTEROL/IPRATROPIUM 3 ML (DUONEB) VIAL INH SCH ×4 (00:01→15:59)
[2021-08-17] MEDS ORDERED: POTASSIUM CL 10MEQ/50ML IVPB 50 ML IV SCH (06:00)
[2021-08-17] MEDS ORDERED: KCL 20 MEQ TAB (K-DUR) PO SCH (06:00)
[2021-08-17] MEDS ORDERED: MAGNESIUM 1 GM/100 ML IVPB 100 ML IV SCH (06:00)
[2021-08-17 06:17] LABS: POTASSIUM 3.8 MMOL/L (3.6-5.0)
[2021-08-17 06:18] LABS: CALCIUM 8.7 MG/DL (8.5-10.1)
[2021-08-17 06:23] LABS: CREATININE SERUM 0.82 MG/DL (0.60-1.30)
[2021-08-17] MEDS: inSUlin ASPART (NovoLOG) 1 UNIT/0.01 ML (CHARGE PER UNIT) SC SCH ×3 (06:48→17:16)
[2021-08-17] MEDS: PANTOPRAZOLE 40 MG (PROTONIX) VIAL IV SCH (08:02)
[2021-08-17] MEDS ORDERED: NICOTINE PATCH REMOVAL TP SCH (08:59)
[2021-08-17] MEDS ORDERED: CLOPIDOGREL 75 MG (PLAVIX) TABLET PO SCH (09:00)
[2021-08-17] MEDS ORDERED: ASPIRIN 81 MG CHEW (CHILDREN'S ASA) PO SCH (09:00)
[2021-08-17] MEDS ORDERED: amLODIPine 5 MG (NORVASC) TAB PO ONE (09:15)
[2021-08-17] MEDS: ENOXAPARIN 80 MG/0.8 ML (LOVENOX) SYR SC SCH (09:34)
[2021-08-17] MEDS ORDERED: NS IV 1000 ML 1,000 ML ONE (11:22)
[2021-08-17] MEDS ORDERED: LIDOCAINE 1% INJ 20 ML VIAL ONE (11:22)
[2021-08-17] MEDS ORDERED: HEParin (CATH LAB) 2,000 ML IV ONE (11:23)
[2021-08-17] MEDS ORDERED: fentaNYL INJ 100 MCG/2 ML AMP ONE (14:10)
[2021-08-17] MEDS ORDERED: MIDAZOLAM 5 MG/5 ML (VERSED) VIAL ONE (14:11)
[2021-08-17] MEDS ORDERED: ADENOSINE 90 MG/30 ML (ADENOSCAN) VIAL IV ONE ×2 (15:12→15:13)
[2021-08-17] MEDS ORDERED: HEParin 1000 UNIT/ML (10ML VIAL) FOR BOLUS ONE (15:12)
--- NOTE | 2021-08-17 15:50 | Progress Note - Cardiology ---
Cardiology SOAP Progress Note Subjective: No cp or palp or syncope No shortness of breath at rest No n/v/d Some gen weakness and malaise Objective: I&O/Vital Signs 08/17/21 08/17/21 08/17/21 08/17/21 04:00 04:00 07:00 08:00 Temp 37.0 Pulse 58 53 66 Resp 13 18 B/P (MAP) 98/64 (75) 151/82 (105) Pulse Ox 95 97 O2 Delivery Nasal Cannula Nasal Cannula O2 Flow Rate 2.00 2.00 08/17/21 08/17/21 08/17/21 08/17/21 08:04 08:06 08:52 08:55 Temp 36.1 Pulse Ox 97 96 O2 Delivery Room Air Room Air Room Air O2 Flow Rate 0.00 08/17/21 08/17/21 11:46 13:14 Temp 36.8 Pulse 80 65 Resp 17 B/P (MAP) 132/76 (94) Pulse Ox 96 O2 Delivery Room Air 08/17/21 00:00 Intake Total 750 ml Output Total 550 ml Balance 200 ml Weight (Pounds): 214 Weight (Ounces): 0.0 Weight (Calculated Kilograms): 97.669567 Constitutional: AAO x 3, well-developed, well-nourished Respiratory: No accessory muscle use, No respiratory distress; chest expansion is symmetric, chest is bilaterally symmetric, rhonchi (scattered) Cardiovascular: regular rate-rhythm; No JVD; S1 and S2 Gastrointestional: No tender; soft, round, audible bowel sounds Extremities: no lower extremity edema bilateral Neurologic/Psychiatric: oriented x 3, other (moves all limbs) Skin: No rash on exposed areas, No ulcerations on exposed areas Results/Procedures: Labs Laboratory Tests 08/17/21 05:23: Sodium Level 138, Potassium Level 3.8, Chloride Level 106, Carbon Dioxide Level 22, Anion Gap 10, Blood Urea Nitrogen 18, Creatinine 0.82, Estimat Glomerular Filtration Rate 95, BUN/Creatinine Ratio 22, Glucose Level 89, Calcium Level 8.7, Magnesium Level 2.0 08/17/21 10:17: Glucometer 158H Laboratory Tests 08/16/21 07:05 08/17/21 05:23 A/P: Assessment: Chest pain, non-cardiac (see below) - card cath of 7/8/22: no significant obstructive CAD; patent sent in ramus intermedius; some haziness of the ostium of the ramus but FFR is 0.91 across this and the lesion is, thus, nonsignificant; LMCA and LAD and LCx and RCA show mild plaques; RCA is dominant; LVEDP 8 mmHg; LVEF approx 60% CAD - H/O Resolute Onyxx 2.75 x 12 and 2.5 x 12 stents to the Ramus on 09-01-[address] Retana at the [facility] (according to stent card) - Reports h/o stent approx 2 yrs ago at [place] - details unknown HTN HLD Tobaccoism - 1 PPD - cessation advised DM 2 Probable COPD Plan: * W/u for noncardiac causes of chest discomfort is with the Hospitalist service * Ok to d/c from cardiac standpoint * Cardiac risk factor mod reviewed, smoking cessation and outpt cardiac f/u advised Clinical Quality Measures AMI/AHF: ASA po Prior to arrival: Yes (81 mg) ZORAN PRITCHARD MD FACP FAC CCDS Aug 17, 2021 15:50
[2021-08-17] MEDS ORDERED: PATIENT MAY USE OWN MEDS, ALL PO SCH (16:00)
[2021-08-17] MEDS ORDERED: NS IV 1000 ML 1,000 ML IV SCH (16:00)
--- NOTE | 2021-08-17 21:52 | Discharge Summary ---
Discharge Summary Hospital Course Problems/Dx: (1) Coronary artery disease with unstable angina pectoris Status: Acute Qualifiers: Qualified Codes: I25.110 - Atherosclerotic heart disease of curyung coronary artery with unstable angina pectoris Hospital Course Date of Admission: Aug 16, 2021 at 11:56 Admission Diagnosis : CAD with unstable angina Family Physician/Provider: Cher Roman MD Date of Discharge: 08/17/21 Discharge Diagnosis: Non cardiac chest pain, GERD Hospital Course: Leopoldo Valente is a 71 year old male with PMH HTN, T2DM, HLD, CAD, current smoker, who presented with chest pain. Cardiology was consulted and assisted with his care. His troponin remained normal. His EKG was unremarkable. He underwent left heart cath which showed nonobstructive coronary artery disease. He was continued on Pantoprazole twice daily due to GERD as possible cause of his chest pain. His chest pain resolved completely. He was discharged home in stable condition. He should follow up with his PCP in a week or two. Labs and Pending Lab Test: Laboratory Tests 08/17/21 05:23: Sodium Level 138, Potassium Level 3.8, Chloride Level 106, Carbon Dioxide Level 22, Anion Gap 10, Blood Urea Nitrogen 18, Creatinine 0.82, Estimat Glomerular Filtration Rate 95, BUN/Creatinine Ratio 22, Glucose Level 89, Calcium Level 8.7, Magnesium Level 2.0 08/17/21 10:17: Glucometer 158H 08/17/21 17:07: Glucometer 88 Home Meds Active Reported Ferrous Sulfate 324 Mg (65 Mg Iron) Tablet. 324 Mg PO Q48H Metformin HCl 500 Mg Tablet 500 Mg PO BID Amlodipine Besylate 10 Mg Tablet 5 Mg PO DAILY TAKES OF A 10MG Tylenol Extra Strength (Acetaminophen) 500 Mg Tablet 1,000 Mg PO Q4H PRN Multivitamins (Multivitamin) 1 Each Tablet 1 Tab PO DAILY Vitamin C (Ascorbate Calcium) 500 Mg Tablet 500 Mg PO DAILY Proair Hfa (Albuterol Sulfate) 1 Puff Puff 2 Puff IH Q6H PRN Pantoprazole Sodium 40 Mg Tablet. 40 Mg PO BID Nitroglycerin 0.4 Mg Tab.subl 0.4 Mg SL UD PRN Atorvastatin Calcium 80 Mg Tablet 40 Mg PO HS TAKES OF A 80NG TAB Aspirin EC (Aspirin) 81 Mg Tablet. 81 Mg PO DAILY Assessment/Pt Instructions Take medications as prescribed. Follow up with your PCP. Return with worsening chest pain, shortness of breath, or if you feel like you are getting worse. Discharge Planning: <30 minutes discharge planning Discharge Instructions Discharge Diet: Low Sodium Diet Activity as Tolerated: Yes Consultations Cardiology Discharge Physical Examination Vital Signs Vital Signs Date Time Temp Pulse Resp B/P (MAP) Pulse Ox O2 Delivery O2 Flow Rate FiO2 08/17/21 19:15 36.9 82 24 130/70 (90) 97 Room Air 08/17/21 15:59 0.00 General Appearance: No Apparent Distress, WD/WN Respiratory: Lungs Clear, No Respiratory Distress Cardiovascular: Regular Rate, Rhythm, No Murmur Gastrointestinal: Normal Bowel Sounds, Soft Extremity: Normal Inspection, No Pedal Edema Skin: Normal Color, Warm/Dry Neurologic/Psychiatric: Alert, No Motor/Sensory Deficits Allergies: Coded Allergies: NSAIDS (Non-Steroidal Anti-Inflamma (Verified Allergy, Severe, shortness of breath, rash, 07/08/18) codeine (Verified Allergy, Severe, swelling, shortness of breath, 07/08/18) Discharge Summary Date of Admission Aug 16, 2021 at 11:56 Date of Discharge Aug 17, 2021 at 19:39 Discharge Date: Aug 17, 2021 Discharge Time: 19:39 Admission Diagnosis Unstable angina Consults/Procedures Consulations Cardiology Procedures Left heart catheterization Discharge Diagnosis CAD with unstable angina HTN HLD Current smoker T2DM (1) Coronary artery disease with unstable angina pectoris Status: Acute Qualifiers: Qualified Codes: I25.110 - Atherosclerotic heart disease of curyung coronary artery with unstable angina pectoris (2) GERD (gastroesophageal reflux disease) Status: Acute Qualifiers: Qualified Codes: K21.9 - Gastro-esophageal reflux disease without esophagitis Clinical Quality Measures AMI/AHF: ASA po Prior to arrival: Yes (81 mg) MATHIEU CAPONE MD Aug 17, 2021 21:47
--- NOTE | 2021-08-18 00:31 | CARDIAC CATHETERIZATION ---
DATE OF SERVICE: 08/17/2021 CARDIAC CATHETERIZATION REPORT The patient is a 71-year-old gentleman who has a history of coronary artery disease. He has had a stent to the ramus intermedius artery in [place] by Dr. Retana on 09/01/2017. He is reported to have had Resolute [place] 2.75 x 12 and 2.5 x 12 mm stent to this vessel. He was admitted with symptoms suggestive of unstable angina. He has multiple continuing coronary risk factors. Cardiac catheterization was carried out today after having obtained an informed consent. DESCRIPTION OF PROCEDURE: He was brought to the cardiac catheterization laboratory in a fasting state. Right groin was prepared and draped in the usual sterile fashion. Lidocaine 1% was used for local anesthesia. Modified Seldinger technique was used to advance a 5-Serbian sheath in the right femoral artery, 5-Serbian JL4 catheter was used for left coronary angiography, 5-Serbian JR4 catheter for right coronary angiography, 5-Serbian pigtail catheter was used for left heart catheterization and left ventricular angiography. Subsequently, we carried out fractional flow reserve measurement in the ramus intermedius artery and it is described below. FRACTIONAL FLOW RESERVE MEASUREMENT IN THE RAMUS INTERMEDIUS: We exchanged the sheath over a wire for a 6-Serbian sheath. We used a 6-Serbian JL4 guide catheter with side holes. We gave 4000 units of intravenous heparin. We advanced a pressure wire across an ostial lesion in the ramus intermedius. This was a lesion that was exhibiting some haziness, but there did not appear to be significant stenosis. We advanced the pressure wire across this lesion and across the standard segment of the ramus intermedius. We then gave 140 mcg per kilogram per minute of adenosine for 2-1/2 minutes. Fractional flow reserve was 0.91, indicating that the lesions in the ramus intermedius were not hemodynamically significant. The equipment was removed. Angiography of the left coronary system was repeated to make sure that there was no status change following the fractional flow reserve measurement. The equipment was then removed. Angiography of the right femoral artery was carried out through the sheath. Mynx was used to achieve hemostasis. HEMODYNAMICS: Left ventricular end-diastolic pressure following coronary angiography was 8 mmHg. There was no significant pressure gradient on pullback across the aortic valve. LEFT VENTRICULAR ANGIOGRAPHY: Left ventricular angiography was carried out in the right anterior oblique projection. Global left ventricular systolic function is normal. No regional wall motion abnormality is seen. Left ventricular ejection fraction is approximately 60%. CORONARY ANGIOGRAPHY: Left main coronary artery is free of significant disease. Left anterior descending artery has minor plaques. Ramus intermedius had some haziness at the ostium, but this was hemodynamically nonsignificant (fractional flow reserve was 0.91). The mid ramus intermedius artery has widely patent stents. The left circumflex artery has mild plaques. The right coronary artery is dominant and has mild plaques. CONCLUSIONS: 1. No significant obstructive coronary artery disease. There are patent stents in the ramus intermedius that are known to be Resolute [place] 2.75 x 12 mm and 2.5 x 12 mm stents that were placed in 08/2017 in [place], [place]. The stents are patent without significant disease. The rest of the coronary vessels have mild plaque. 2. Normal left ventricular end-diastolic pressure. 3. Normal global left ventricular systolic function with ejection fraction approximately 60%. DISCUSSION AND RECOMMENDATIONS: Based on results of the study, a chest discomfort does not appear to have been of cardiac origin. Continuing risk factor modification is advised. Immediate and complete smoking cessation is advised. Outpatient followup is advised. Job ID: [id number] DocumentID: [id number] Dictated Date: 08/17/2021 16:10:24 Case Mgr Date: 08/18/2021 00:30:26 Dictated By: ZORAN PRITCHARD MD, MA, FACP, FACC,
[2021-08-18] MEDS ORDERED: amLODIPine 5 MG (NORVASC) TAB PO SCH (09:00)
== END 2021-08-17 19:39 | disposition home or self-care (01) | DRG 392 ==
LOC: EDUNIT# 06:56 → ER FS 06:58 → ICU 11:56
PROVIDERS: ADMIT Internal Medicine; ATTEND Internal Medicine
PROC: 4A023N7 Measurement of Cardiac Sampling and Pressure, Left Heart, Percutaneous Approach (ICD-10-PCS; principal; 2021-08-17)
PROC: B2111ZZ Fluoroscopy of Multiple Coronary Arteries using Low Osmolar Contrast (ICD-10-PCS; 2021-08-17)
PROC: B2151ZZ Fluoroscopy of Left Heart using Low Osmolar Contrast (ICD-10-PCS; 2021-08-17)
PROC: 4A033BC Measurement of Arterial Pressure, Coronary, Percutaneous Approach (ICD-10-PCS; 2021-08-17)
DX: K21.9 Gastro-esophageal reflux disease without esophagitis (principal); I25.110 Atherosclerotic heart disease of native coronary artery with unstable angina pectoris; I10 Essential (primary) hypertension; F17.210 Nicotine dependence, cigarettes, uncomplicated; E11.9 Type 2 diabetes mellitus without complications; Z95.5 Presence of coronary angioplasty implant and graft; Z79.82 Long term (current) use of aspirin; Z79.899 Other long term (current) drug therapy; J44.9 Chronic obstructive pulmonary disease, unspecified; E78.00 Pure hypercholesterolemia, unspecified; R00.1 Bradycardia, unspecified
CPT/HCPCS: 36415; 71045; 80048; 80053; 82947; 83735; 83874; 83880; 84484; 85025; 85610; 85730; 93005; 93041; 93306; 93458; 94640; 94760

== ENCOUNTER 2022-01-10 11:38 | Emergency (ER) | payer OTHER ==
[~2022-01-10] VITALS: Ht 157 cm; Wt 84.1 kg
[~2022-01-10 11:38] MED LIST changes: +ALBU8.5H6 IH; +AMLO-251 PO; +FERR324T4 PO; +METF-397 PO; +METO100T12 PO; -MOME220A2 IH; +MOME220A6 IH; -RT-ALBUINH IH; +TERB15CR6 TP
--- NOTE | 2022-01-10 11:48 | ED Lower Extremity ---
General Stated Complaint: RT LEG INJ History of Present Illness Date Seen by Provider: Jan 10, 2022 Time Seen by Provider: 11:43 Initial Comments 71-year-old male presents with right leg pain. Patient reports that weeks ago on he was going out to smoke when a dog him in the leg. That since then he has had pain. [facility] and [facility] him [facility] to get x-rays. The pain is mainly just proximal to the knee. He is able to bear weight and ambulate. He reports the first couple days he used a cane. He states the pain was initially around the knee and now its mainly above the knee but goes all way down to his ankle. Allergies and Home Medications Allergies Coded Allergies: NSAIDS (Non-Steroidal Anti-Inflamma (Verified Allergy, Severe, shortness of breath, rash, 07/08/18) codeine (Verified Allergy, Severe, swelling, shortness of breath, 07/08/18) Patient Home Medication List Home Medication List Reviewed: Yes Acetaminophen (Tylenol Extra Strength) 500 Mg Tablet, 1,000 MG PO Q4H PRN for PAIN-MILD, (Reported) Entered as Reported by: ANTONI MICHEL on 07/08/18 1422 Albuterol Sulfate (Ventolin Hfa) 1 Puff Puff, 2 PUFF IH Q6H PRN for SHORTNESS OF BREATH, (Reported) Entered as Reported by: ANTONI MICHEL on 07/08/18 1421 Amlodipine Besylate (Amlodipine Besylate) 10 Mg Tablet, 5 MG PO DAILY, (Reported) Entered as Reported by: PONCHO CONSTANTINO on 08/16/21 1229 Ascorbate Calcium (Vitamin C) 500 Mg Tablet, 500 MG PO DAILY, (Reported) Entered as Reported by: ANTONI MICHEL on 07/08/18 1422 Aspirin (Aspirin EC) 81 Mg Tablet.dr, 81 MG PO DAILY, (Reported) Entered as Reported by: ARTUR BRADLEY on 07/08/18 1107 Atorvastatin Calcium (Atorvastatin Calcium) 80 Mg Tablet, 40 MG PO HS, (Reported) Entered as Reported by: ARTUR BRADLEY on 07/08/18 1107 Ferrous Sulfate (Ferrous Sulfate) 324 Mg (65 Mg Iron) Tablet., 324 MG PO Q48H, (Reported) Entered as Reported by: PONCHO CONSTANTINO on 08/16/21 1229 Metformin HCl (Metformin HCl) 500 Mg Tablet, 500 MG PO BID, (Reported) Entered as Reported by: PONCHO CONSTANTINO on 08/16/21 1229 Multivitamin (Multivitamins) 1 Each Tablet, 1 TAB PO DAILY, (Reported) Entered as Reported by: ANTONI MICHEL on 07/08/18 1422 Nitroglycerin (Nitroglycerin) 0.4 Mg Tab.subl, 0.4 MG SL UD PRN for CHEST PAIN, (Reported) Entered as Reported by: ARTUR BRADLEY on 07/08/18 1107 Pantoprazole Sodium (Pantoprazole Sodium) 40 Mg Tablet.dr, 40 MG PO BID, (Reported) Entered as Reported by: ARTUR BRADLEY on 07/08/18 1107 Review of Systems Constitutional: no symptoms reported EENTM: no symptoms reported Respiratory: no symptoms reported Cardiovascular: no symptoms reported Gastrointestinal: no symptoms reported Musculoskeletal: see HPI Skin: see HPI Past Zppxfme-Uglwra-Gbhmlp Hx Immunizations Up To Date Tetanus Booster (TDap): Unknown Seasonal Allergies Seasonal Allergies: No Past Medical History Surgery/Hospitalization HX: CAD with stent x 3, Diabetes, asthma/COPD Surgeries: Yes (cyst removal) Cardiac, Coronary Stent Respiratory: Yes (Hx Costochondral chest pain) Chronic Bronchitis, COPD Cardiac: Yes (Hx WPW) Coronary Artery Disease, High Cholesterol, Hypertension Neurological: No Genitourinary: No Gastrointestinal: Yes Gastroesophageal Reflux Musculoskeletal: Yes (back pain r/t pulled muscles) Endocrine: No HEENT: No Cancer: No Psychosocial: No Integumentary: No Blood Disorders: No Family Medical History No Pertinent Family Hx Physical Exam Vital Signs Vital Signs - First Documented 01/10/22 11:51 Temp 36.3 Pulse 77 Resp 16 B/P (MAP) 166/77 (106) Pulse Ox 97 O2 Delivery Room Air Capillary Refill : Height, Weight, BMI Height: 5'10.00" Weight: 214lbs. 0.0oz. 97.181934is; 26.76 BMI Method:Stated General Appearance: WD/WN, no apparent distress Neck: full range of motion, supple Cardiovascular: normal peripheral pulses, regular rate, rhythm Respiratory: lungs clear, normal breath sounds Hips: bilateral hip non-tender Legs: right leg pain, right leg soft tissue tenderness Knees: right knee soft tissue tenderness, right knee swelling Ankles: bilateral ankle non-tender Feet: bilateral foot non-tender Neurologic/Psychiatric: alert, normal mood/affect, oriented x 3 Progress/Results/Core Measures Results/Orders My Orders Orders - MARTIN FINN DO Femur 2 View Right (01/10/22 11:48) Tibia Fibula 2 View Right (01/10/22 11:48) Vital Signs/I&O 01/10/22 11:51 Temp 36.3 Pulse 77 Resp 16 B/P (MAP) 166/77 (106) Pulse Ox 97 O2 Delivery Room Air Progress Progress Note : Progress Note Patient is x-ray shows no acute findings. Patient's physical exam shows no significant ligament injury. Patient will likely a knee strain and exacerbation of his arthritis. He can use topical medication such as Voltaren, lidocaine along with ibuprofen. [facility] if symptoms or not improved. Patient stable and discharged Departure Impression Primary Impression: Sprain of knee Qualified Codes: S83.91XA - Sprain of unspecified site of right knee, initial encounter Additional Impression: Pain in right lower leg Disposition: HOME, SELF-CARE Condition: Stable Departure-Patient Inst. Referrals: ANGEL ANSARI MD (PCP) Primary Care Physician Patient Instructions: Knee Sprain ED, Muscle and Bone Pain (DC) Add. Discharge Instructions: 4% topical lidocaine with menthol cream or gel, use as directed on package as needed for pain. Voltaren/diclofenac cream, use as directed on package, Tylenol or ibuprofen as needed for pain. [facility] 1 week if symptoms or not improving MARTIN FINN DO Jan 10, 2022 11:48
[2022-01-10 11:51] VITALS: BP 166/77
--- NOTE | 2022-01-10 12:24 | Diagnostic Imaging Report ---
INDICATION: Pain. FINDINGS: No fracture or dislocation to the knee or ankle joints. A metallic curvilinear opacity projects to the medial tibial metaphysis of uncertain acuity. No adjacent swelling or air. This is presumed chronic. No abnormal periosteal reaction. There are degenerative changes at the knee and ankle. IMPRESSION: No acute bony pathology, presumed chronic. Metallic opacity proximally. Arthritic changes involve the knee and ankle, chronic. Dictated by: Dictated on workstation # [id number]
--- NOTE | 2022-01-10 12:24 | Diagnostic Imaging Report ---
INDICATION: Trauma with right leg pain. FINDINGS: Four views. The right femur appears intact. Femoral head is in normal articulation with the acetabulum. Joint spaces are well preserved with smooth surfaces. No hypertrophic changes. No fractures. The right pubic ramus appears normal. Pubic symphysis and SI joint are in good alignment. Moderate hypertrophic arthritic changes of the SI joint. No changes to suggest osteonecrosis. The knee shows marked narrowing of the medial compartment. IMPRESSION: 1. No acute abnormalities. 2. Rather advanced arthritic changes noted in the right knee. Dictated by: Dictated on workstation # [id number]
== END 2022-01-10 12:40 | disposition home or self-care (01) ==
LOC: EDUNIT# 11:38 → ER FS 11:41
DX: S83.91XA Sprain of unspecified site of right knee, initial encounter (principal); Z88.5 Allergy status to narcotic agent; Z28.310 Unvaccinated for COVID-19; X58.XXXA Exposure to other specified factors, initial encounter
CPT/HCPCS: 73552; 73590

== ENCOUNTER 2022-05-02 18:50 | Emergency (ER) | payer OTHER ==
--- NOTE | 2022-05-02 18:52 | ED Chest Pain ---
General Stated Complaint: CHEST PAIN History of Present Illness Date Seen by Provider: May 02, 2022 Time Seen by Provider: 18:52 Initial Comments 72-year-old male presents with chest pain. Patient reports ports the chest pain has been going on and off for couple days. That has been gone for couple hours today. That he did take a nitro with no relief. They did get a headache but the nausea that after the nitro. Pain is in his left chest. Patient reports it gets worse with deep breath along with palpitation of the chest wall. No fevers or chills reported. Allergies and Home Medications Allergies Coded Allergies: NSAIDS (Non-Steroidal Anti-Inflamma (Verified Allergy, Severe, shortness of breath, rash, 07/08/18) codeine (Verified Allergy, Severe, swelling, shortness of breath, 07/08/18) Patient Home Medication List Home Medication List Reviewed: Yes Acetaminophen (Tylenol Extra Strength) 500 Mg Tablet, 1,000 MG PO Q4H PRN for PAIN-MILD, (Reported) Entered as Reported by: ANTONI MICHEL on 07/08/18 1422 Albuterol Sulfate (Ventolin Hfa) 1 Puff Puff, 2 PUFF IH Q6H PRN for SHORTNESS OF BREATH, (Reported) Entered as Reported by: ANTONI MICHEL on 07/08/18 1421 Amlodipine Besylate (Amlodipine Besylate) 10 Mg Tablet, 5 MG PO DAILY, (Reported) Entered as Reported by: PONCHO CONSTANTINO on 08/16/21 1229 Ascorbate Calcium (Vitamin C) 500 Mg Tablet, 500 MG PO DAILY, (Reported) Entered as Reported by: ANTONI MICHEL on 07/08/18 1422 Aspirin (Aspirin EC) 81 Mg Tablet.dr, 81 MG PO DAILY, (Reported) Entered as Reported by: ARTUR BRADLEY on 07/08/18 1107 Atorvastatin Calcium (Atorvastatin Calcium) 80 Mg Tablet, 40 MG PO HS, (Repor aries) Entered as Reported by: ARTUR BRADLEY on 07/08/18 1107 Ferrous Sulfate (Ferrous Sulfate) 324 Mg (65 Mg Iron) Tablet.dr, 324 MG PO Q48H, (Reported) Entered as Reported by: PONCHO CONSTANTINO on 08/16/21 1229 Metformin HCl (Metformin HCl) 500 Mg Tablet, 500 MG PO BID, (Reported) Entered as Reported by: PONCHO CONSTANTINO on 08/16/21 1229 Multivitamin (Multivitamins) 1 Each Tablet, 1 TAB PO DAILY, (Reported) Entered as Reported by: ANTONI MICHEL on 07/08/18 1422 Nitroglycerin (Nitroglycerin) 0.4 Mg Tab.subl, 0.4 MG SL UD PRN for CHEST PAIN, (Reported) Entered as Reported by: ARTUR BRADLEY on 07/08/18 1107 Pantoprazole Sodium (Pantoprazole Sodium) 40 Mg Tablet.dr, 40 MG PO BID, (Reported) Entered as Reported by: ARTUR BRADLEY on 07/08/18 1107 Review of Systems Review of Systems Constitutional: No chills, No fever Respiratory: See HPI; Denies Cough Cardiovascular: Chest Pain; Denies Palpitations, Denies Syncope Gastrointestinal: Denies Abdominal Pain; Nausea Musculoskeletal: see HPI Skin: no symptoms reported Psychiatric/Neurological: No Symptoms Reported Endocrine: No Symptoms Reported Past Kvqdzqu-Azjcrk-Dsnbbt Hx Immunizations Up To Date Tetanus Booster (TDap): Unknown Seasonal Allergies Seasonal Allergies: No Past Medical History Surgery/Hospitalization HX: CAD with stent x 3, Diabetes, asthma/COPD Surgeries: Yes (cyst removal) Cardiac, Coronary Stent Respiratory: Yes (Hx Costochondral chest pain) Chronic Bronchitis, COPD Cardiac: Yes (Hx WPW) Coronary Artery Disease, High Cholesterol, Hypertension Neurological: No Genitourinary: No Gastrointestinal: Yes Gastroesophageal Reflux Musculoskeletal: Yes (back pain r/t pulled muscles) Endocrine: No HEENT: No Cancer: No Psychosocial: No Integumentary: No Blood Disorders: No Family Medical History No Pertinent Family Hx Physical Exam Vital Signs Vital Signs - First Documented 05/02/22 18:52 Temp 36.5 Pulse 82 Resp 20 B/P (MAP) 146/93 (110) Pulse Ox 97 O2 Delivery Room Air Capillary Refill : Height, Weight, BMI Height: 5'10.00" Weight: 214lbs. 0.0oz. 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 Norm as Tested Skin: Normal Color, Warm/Dry Progress/Results/Core Measures Results/Orders Lab Results Laboratory Tests Test 05/02/22 18:56 Range/Units White Blood Count 8.1 4.3-11.0 10^3/uL Red Blood Count 4.96 4.30-5.52 10^6/uL Hemoglobin 15.0 13.3-17.7 g/dL Hematocrit 45 40-54 % Mean Corpuscular Volume 91 80-99 fL Mean Corpuscular Hemoglobin 30 25-34 pg Mean Corpuscular Hemoglobin Concent 33 32-36 g/dL Red Cell Distribution Width 13.9 10.0-14.5 % Platelet Count 253 130-400 10^3/uL Mean Platelet Volume 10.3 9.0-12.2 fL Immature Granulocyte % (Auto) 0 % Neutrophils (%) (Auto) 50 42-75 % Lymphocytes (%) (Auto) 38 12-44 % Monocytes (%) (Auto) 9 0-12 % Eosinophils (%) (Auto) 1 0-10 % Basophils (%) (Auto) 1 0-10 % Neutrophils # (Auto) 4.1 1.8-7.8 10^3/uL Lymphocytes # (Auto) 3.1 1.0-4.0 10^3/uL Monocytes # (Auto) 0.7 0.0-1.0 10^3/uL Eosinophils # (Auto) 0.1 0.0-0.3 10^3/uL Basophils # (Auto) 0.1 0.0-0.1 10^3/uL Immature Granulocyte # (Auto) 0.0 0.0-0.1 10^3/uL Prothrombin Time 13.7 12.2-14.7 SEC INR Comment 1.0 0.8-1.4 Activated Partial Thromboplast Time 30 24-35 SEC Sodium Level 142 135-145 MMOL/L Potassium Level 3.8 3.6-5.0 MMOL/L Chloride Level 104 98-107 MMOL/L Carbon Dioxide Level 26 21-32 MMOL/L Anion Gap 12 5-14 MMOL/L Blood Urea Nitrogen 12 7-18 MG/DL Creatinine 0.89 0.60-1.30 MG/DL Estimat Glomerular Filtration Rate 92 BUN/Creatinine Ratio 13 Glucose Level 157 H 70-105 MG/DL Calcium Level 9.1 8.5-10.1 MG/DL Corrected Calcium 8.9 8.5-10.1 MG/DL Magnesium Level 1.8 1.6-2.4 MG/DL Total Bilirubin 0.7 0.1-1.0 MG/DL Aspartate Amino Transf (AST/SGOT) 16 5-34 U/L Alanine Aminotransferase (ALT/SGPT) 11 0-55 U/L Alkaline Phosphatase 77 40-136 U/L Myoglobin 53.0 <72.0 NG/ML Troponin I < 0.30 <0.30 NG/ML Total Protein 7.0 6.4-8.2 GM/DL Albumin 4.3 3.2-4.5 GM/DL Lipase 12 8-78 U/L My Orders Orders - FINN,MARTIN L DO Cbc With Automated Diff (05/02/22 18:54) Magnesium (05/02/22 18:54) Chest 1 View Ap/Pa Only (05/02/22 18:54) Ekg Tracing (05/02/22 18:54) Comprehensive Metabolic Panel (05/02/22 18:54) Myoglobin Serum (05/02/22 18:54) Protime With Inr (05/02/22 18:54) Partial Thromboplastin Time (05/02/22 18:54) Monitor-Rhythm Ecg Trace Only (05/02/22 18:54) Aspirin Chewable Tablet (Baby Aspirin Ch (05/02/22 19:00) Ed Iv/Invasive Line Start (05/02/22 18:54) Lipase (05/02/22 18:54) Troponin I Fs (05/02/22 18:54) Medications Given in ED Current Medications Medications Dose Ordered Sig/Rox Route Start Time Stop Time Status Last Admin Dose Admin Aspirin 324 mg ONCE ONCE PO 05/02/22 19:00 05/02/22 19:01 DC 05/02/22 19:05 324 MG Vital Signs/I&O 05/02/22 05/02/22 18:52 19:52 Temp 36.5 Pulse 82 62 Resp 20 18 B/P (MAP) 146/93 (110) 124/66 Pulse Ox 97 98 O2 Delivery Room Air Room Air Progress Progress Note : Progress Note Patient diagnostic studies were ordered reviewed and interpreted by me. John pickard's has a negative troponin, no acute findings on labs. Chest x-ray is negative. Patient's EKG shows normal sinus rhythm with no acute changes. Heart rate 74 FL 176. With patient's symptoms going on for couple days and reproducible with palpitation with negative troponins and negative EKG is very unlikely is cardiac related. I do suspect it is likely musculoskeletal. He is unable to take NSAIDs so I recommended topical lidocaine with menthol along with Tylenol. Patient stable and discharged Initial ECG Impression Date: May 02, 2022 Initial ECG Impression Time: 18:55 Initial ECG Rate: 74 Initial ECG Rhythm: Normal Sinus Initial ECG Intervals: Normal Initial ECG Impression: Nonspecific Changes Comment no acute st elevation or changes Diagnostic Imaging Diagonstic Imaging: Xray Plain Films/CT/US/NM/MRI: chest Comments Date of Exam:05/02/22 CHEST 1 VIEW AP/PA ONLY INDICATION: 72-year-old male presents with chest pain for several days. COMPARISONS: 08/16/2021. FINDINGS: Single view chest shows a senescent chest with emphysematous changes and chronic parenchymal changes. No consolidations are seen. There is no effusion or pneumothorax. Soft tissues and visualized bony thorax are grossly unremarkable. IMPRESSION: No acute cardiopulmonary changes. Reviewed: Reviewed by Me, Reviewed/Discussed Departure Impression Primary Impression: Chest wall pain Disposition: 01 HOME, SELF-CARE Condition: Stable Departure-Patient Inst. Referrals: ANGEL ANSARI MD (PCP) Primary Care Physician Patient Instructions: Chest Pain That Is Not Caused by the Heart (DC), Pleuritic Chest Pain (DC) Add. Discharge Instructions: 4% topical lidocaine with menthol cream gel or patch use as directed on package. Tylenol every 4 hours as needed for pain. Warm moist heat to left chest wall. Follow-up with your primary care provider in 3 to 4 days if symptoms continue to bother you. MARTIN FINN DO May 02, 2022 18:52
[2022-05-02] MEDS ORDERED: ASPIRIN 81 MG CHEW (CHILDREN'S ASA) PO ONE (19:00)
[2022-05-02 19:09] LABS: BASOPHILS # (AUTO) 0.1 10^3/uL (0.0-0.1); BASOPHILS % (AUTO) 1 % (0-10); EOSINOPHILS # (AUTO) 0.1 10^3/uL (0.0-0.3); EOSINOPHILS % (AUTO) 1 % (0-10); HEMATOCRIT 45 % (40-54); LYMPHOCYTES # (AUTO) 3.1 10^3/uL (1.0-4.0); LYMPHOCYTES % (AUTO) 38 % (12-44); MEAN CORPUSCULAR HEMOGLOBIN 30 pg (25-34); MEAN CORPUSCULAR HGB CONC 33 g/dL (32-36); MEAN CORPUSCULAR VOLUME 91 fL (80-99); MEAN PLATELET VOLUME 10.3 fL (9.0-12.2); MONOCYTES # (AUTO) 0.7 10^3/uL (0.0-1.0); MONOCYTES % (AUTO) 9 % (0-12); NEUTROPHILS # (AUTO) 4.1 10^3/uL (1.8-7.8); NEUTROPHILS % (AUTO) 50 % (42-75); PLATELET COUNT 253 10^3/uL (130-400); WHITE BLOOD COUNT 8.1 10^3/uL (4.3-11.0)
--- NOTE | 2022-05-02 19:19 | Diagnostic Imaging Report ---
INDICATION: 72-year-old male presents with chest pain for several days. COMPARISONS: 08/16/2021. FINDINGS: Single view chest shows a senescent chest with emphysematous changes and chronic parenchymal changes. No consolidations are seen. There is no effusion or pneumothorax. Soft tissues and visualized bony thorax are grossly unremarkable. IMPRESSION: No acute cardiopulmonary changes. Dictated by: Dictated on workstation # [id number]
[2022-05-02 19:21] LABS: PROTHROMBIN TIME PATIENT 13.7 SEC (12.2-14.7)
[2022-05-02 19:27] LABS: ALBUMIN 4.3 GM/DL (3.2-4.5); BILIRUBIN,TOTAL 0.7 MG/DL (0.1-1.0); CALCIUM 9.1 MG/DL (8.5-10.1); CREATININE SERUM 0.89 MG/DL (0.60-1.30); MAGNESIUM 1.8 MG/DL (1.6-2.4); POTASSIUM 3.8 MMOL/L (3.6-5.0)
[2022-05-02 19:52] VITALS: BP 124/66
== END 2022-05-02 19:55 | disposition home or self-care (01) ==
LOC: EDUNIT# 18:50 → ER FS 18:51
DX: R07.89 Other chest pain (principal); Z95.5 Presence of coronary angioplasty implant and graft; Z88.6 Allergy status to analgesic agent; Z28.310 Unvaccinated for COVID-19
CPT/HCPCS: 36415; 71045; 80053; 83690; 83735; 83874; 84484; 85025; 85610; 85730; 93005; 93041